=== PATIENT | male | born 1955 | race Caucasian/White ===

== ENCOUNTER → 2020-03-04 12:17 | Outpatient (CLI) | payer MEDICARE, SELFPAY ==
--- NOTE | ~2020-03-04 | XR_ITS ---
EXAMINATION: XR chest 2V DATE: 03/04/2020 12:32 INDICATION: Cough. Asbestos exposure. TECHNIQUE: Frontal and lateral views of the chest were obtained. COMPARISON: None. FINDINGS: The chest demonstrates clear lungs without pneumonia, pleural effusion, or pneumothorax. Th e heart size is normal. IMPRESSION: 1. No acute cardiopulmonary disease. Reviewed, dictated and finalized at location A.
== END ==
PROVIDERS: PCP Family Medicine; Visit Provider Family Medicine
DX: R05 Cough (principal); Z77.090 Contact with and (suspected) exposure to asbestos
CPT/HCPCS: 71046

== ENCOUNTER → 2020-10-23 00:53 | Outpatient (CLI) | payer MEDICARE, SELFPAY ==
[2020-10-23 19:13] LABS: SARS-CoV-2 RNA PCR Negative
== END ==
PROVIDERS: PCP Family Medicine; Visit Provider Internal Medicine Gastroenterology
DX: Z01.812 Encounter for preprocedural laboratory examination (principal); Z20.822 Contact with and (suspected) exposure to COVID-19
CPT/HCPCS: C9803; U0003; U0005

== ENCOUNTER 2020-10-26 00:26 | Day surgery (SDC) | payer MEDICARE, SELFPAY ==
[2020-10-20 10:00] VITALS: BMI 32.3
[2020-10-26 10:18] VITALS: BP 154/86; PULSE 66; RESP 18; TEMP 36.5; O2SAT 98; BMI 32.1
[2020-10-26] MEDS: LACTATED RINGERS 1,000 ML 150 ML IV CONT (10:28)
--- NOTE | 2020-10-26 10:39 | WPDANESEPPF ---
Anes - Initial Pre Proc Eval Procedure: Operation Date: 10/26/20 11:30 Proposed Procedures p Screening Colonoscopy - Yann Torre MD Date/Time: 10/26/20 10:39 Surgeon: Yann Torre MD Pre Op Diagnosis: Hx of Colon polyps Patient Data Age: 65 Gender: M Height: 5 ft 6 in Weight: 90.4 kg Last Vital Signs Pulse 66 10/26/20 10:18 Resp 18 10/26/20 10:18 BP 154/86 H 10/26/20 10:18 Pulse Ox 98 10/26/20 10:18 Allergies Allergy/AdvReac Type Severity Reaction Status Date / Time No Known Allergies Allergy Verified 10/26/20 10:16 Home Medications Medication Instructions Recorded Confirmed Type aspirin 81 mg tablet,delayed 81 mg PO DAILY 08/28/19 10/26/20 History release sildenafil 100 mg tablet 100 mg PO DAILY PRN 08/28/19 10/26/20 History Quercetin Phytosome 1 tab-cap PO DAILY 10/20/20 10/26/20 History Zicam 1 spray EACH NARE HS 10/20/20 10/26/20 History ascorbic acid (vitamin C) 1 cap PO DAILY 10/20/20 10/26/20 History cetirizine [Wal-Zyr (cetirizine)] 10 mg PO DAILY 10/20/20 10/26/20 History cholecalciferol (vitamin D3) 125 mcg PO DAILY 10/20/20 10/26/20 History [Vitamin D3] epinephrine [EpiPen 2-Albin] 0.3 mg IM ONCE PRN 10/20/20 10/26/20 History glucos sul 8LTh-hem-ciiab-C-Mn 1 cap PO DAILY 10/20/20 10/26/20 History [Glucosamine Chondroitin] hydrochlorothiazide 12.5 mg PO DAILY 10/20/20 10/26/20 History losartan 100 mg PO DAILY 10/20/20 10/26/20 History magnesium oxide 400 mg PO DAILY 10/20/20 10/26/20 History omega-3 fatty acids [[place]-3] 1,000 mg PO DAILY 10/20/20 10/26/20 History potassium 99 mg PO DAILY 10/20/20 10/26/20 History vit C,K-Yh-taxgu-lutein-zeaxan 1 tablet PO BID 10/20/20 10/26/20 History [PreserVision AREDS-2] Patient hx anesthesia problems: none Family hx anesthesia problems: none PMFSH Past Medical History Medical History (Updated 10/26/20 @ 10:39 by Chad Silverio MD) Anxiety Essential (primary) hypertension History of asbestos exposure Social History Social History (Updated 08/25/20 @ 09:58 by Julienne Nelson) Smoking status: Never smoker Second hand tobacco smoke exposure: No Alcohol intake: current Drinks per week: 10 Alcohol use details: DRINKS Substance use: current Substance use type: marijuana Other substance usage details: 5 TIMES A WEEK Living arrangements: with family Gender identity (if verbalized by the patient): Male Spiritual care concerns: No Anes - Eval Final PreProcedure Day of Procedure 10/26/20 10:39 Patient weight: obese Heart: regular rate and rhythm Lungs: clear to auscultation Airway: Mallampati scale class II Neurological: alert and oriented Last oral intake: >/= 8 hours ASA classification: III Emergent: no Anesthetic plan: proceed Anesthesia type and monitoring: general GIVS and standard monitoring Informed Consent: The patient's anesthetic plan and its attendant risks and benefits were discussed with the patient/family/POA. Questions were solicited and answers provided to the satisfaction of the patient/family/POA.
--- NOTE | 2020-10-26 11:16 | PM.HPGS ---
History of Present Illness History of Present Illness Consent: Risks, benefits, and alternatives have been discussed and questions answered. Patient agrees to proceed with procedure. Chief complaint: Hx of Colon polyps Narrative: Kyle Hilario is a 65 year old male referred for colon cancer screening. He has a history of colon polyps Review of Systems Review of Systems: All systems reviewed & are unremarkable except as noted in HPI and below PMFSH Past Medical History Medical History Anxiety Essential (primary) hypertension History of asbestos exposure Social History Social History Smoking status: Never smoker Second hand tobacco smoke exposure: No Alcohol intake: current Drinks per week: 10 Alcohol use details: DRINKS Substance use: current Substance use type: marijuana Other substance usage details: 5 TIMES A WEEK Living arrangements: with family Gender identity (if verbalized by the patient): Male Spiritual care concerns: No Meds Home Medications and Allergies Home Medications Medication Instructions Recorded Confirmed Type aspirin 81 mg tablet,delayed 81 mg PO DAILY 08/28/19 10/26/20 History release sildenafil 100 mg tablet 100 mg PO DAILY PRN 08/28/19 10/26/20 History Quercetin Phytosome 1 tab-cap PO DAILY 10/20/20 10/26/20 History Zicam 1 spray EACH NARE HS 10/20/20 10/26/20 History ascorbic acid (vitamin C) 1 cap PO DAILY 10/20/20 10/26/20 History cetirizine [Wal-Zyr (cetirizine)] 10 mg PO DAILY 10/20/20 10/26/20 History cholecalciferol (vitamin D3) 125 mcg PO DAILY 10/20/20 10/26/20 History [Vitamin D3] epinephrine [EpiPen 2-Albin] 0.3 mg IM ONCE PRN 10/20/20 10/26/20 History glucos sul 7XDx-ybi-kzdto-C-Mn 1 cap PO DAILY 10/20/20 10/26/20 History [Glucosamine Chondroitin] hydrochlorothiazide 12.5 mg PO DAILY 10/20/20 10/26/20 History losartan 100 mg PO DAILY 10/20/20 10/26/20 History magnesium oxide 400 mg PO DAILY 10/20/20 10/26/20 History omega-3 fatty acids [[place]-3] 1,000 mg PO DAILY 10/20/20 10/26/20 History potassium 99 mg PO DAILY 10/20/20 10/26/20 History vit C,H-My-jcyma-lutein-zeaxan 1 tablet PO BID 10/20/20 10/26/20 History [PreserVision AREDS-2] Allergies Allergy/AdvReac Type Severity Reaction Status Date / Time No Known Allergies Allergy Verified 10/26/20 10:16 Vital Signs Vital Signs - 24 hr 10/26/20 10:18 Pulse Rate 66 Respiratory Rate 18 Blood Pressure 154/86 H Pulse Oximetry 98 Exam Resp: Auscultation: clear to auscultation bilaterally Cardio: Rate: regular rate Rhythm: regular rhythm GI: GI Palp: Yes Soft to palpation and No Tenderness to palpation present (GI) Assessment and Plan Assessment and plan (1) Colon cancer screening: Code(s): Z12.11 - Encounter for screening for malignant neoplasm of colon Status: Acute Assessment and Plan: Colonoscopy with possible biopsy or polypectomy or cautery or injection of substances.
[2020-10-26] MEDS: SIMETHICONE ORAL SUSPENSION 20 MG/0.3 ML 30 ML BOTTLE 0.6 ML IRRIGATION (11:36)
[2020-10-26 11:43] VITALS: BP 107/63; PULSE 66; RESP 19; O2SAT 98
[2020-10-26 11:53] VITALS: BP 116/74; PULSE 67; RESP 18; O2SAT 98
[2020-10-26 12:03] VITALS: BP 118/67; PULSE 64; RESP 18; O2SAT 98
== END 2020-10-26 12:26 | disposition home or self-care (01) ==
PROVIDERS: PCP Family Medicine; Visit Provider Internal Medicine Gastroenterology
PROC: 0DJD8ZZ Inspection of Lower Intestinal Tract, Via Natural or Artificial Opening Endoscopic (ICD-10-PCS; CPT 45378; principal; 2020-10-26 11:30)
DX: Z12.11 Encounter for screening for malignant neoplasm of colon (principal); K57.30 Diverticulosis of large intestine without perforation or abscess without bleeding; Z86.010 Personal history of colon polyps; I10 Essential (primary) hypertension; F41.9 Anxiety disorder, unspecified; F12.90 Cannabis use, unspecified, uncomplicated; E66.9 Obesity, unspecified; Z68.32 Body mass index [BMI] 32.0-32.9, adult; Z79.82 Long term (current) use of aspirin
CPT/HCPCS: G0105; C9803; J2704; J7120; U0003; U0005

== ENCOUNTER → 2021-03-01 11:28 | Outpatient (CLI) | payer MEDICARE, SELFPAY ==
--- NOTE | ~2021-03-01 | XR_ITS ---
EXAMINATION: XR chest 2V 03/01/2021 11:50 INDICATION: Exposure to asbestos PROCEDURE: 2 view chest COMPARISON: 03/04/2020 FINDINGS: The lungs are clear. The cardiomediastinal silhouette is within normal limits. There are no pleural effusions. There is no pneumothorax suspected. IMPRESSION: 1: NO ACUTE CARDIOPULMONARY DISEASE. Reviewed, dictated and finalized at location A.
== END ==
PROVIDERS: PCP Family Medicine; Visit Provider Physician Assistant
DX: Z77.090 Contact with and (suspected) exposure to asbestos (principal)
CPT/HCPCS: 71046

== ENCOUNTER → 2022-02-22 11:16 | Outpatient (CLI) | payer MEDICARE, SELFPAY ==
--- NOTE | ~2022-02-22 | XR_ITS ---
EXAMINATION: XR chest 2V 02/22/2022 11:33 INDICATION: Asbestos exposure PROCEDURE: 2 view chest COMPARISON: 03/01/2021 FINDINGS: The lungs are clear. The cardiomediastinal silhouette is within normal limits. There are no pleural effusions. There is no pneumothorax suspected. IMPRESSION: 1: NO ACUTE CARDIOPULMONARY DISEASE. Reviewed, dictated and finalized at location A.
== END ==
PROVIDERS: PCP Family Medicine; Visit Provider Family Medicine
DX: Z77.090 Contact with and (suspected) exposure to asbestos (principal)
CPT/HCPCS: 71046

== ENCOUNTER 2022-11-11 12:04 | Emergency (ER) | payer MEDICARE, SELFPAY ==
--- NOTE | 2022-11-11 12:09 | PC.NURSE ---
Pt declined to be eval by a PCP due to BP reading in triage of 157/75. Pt ambulated out in NAD w/ , steady gait.
== END 2022-11-11 12:10 | disposition left against medical advice (07) ==
PROVIDERS: PCP Family Medicine
DX: Z53.21 Procedure and treatment not carried out due to patient leaving prior to being seen by health care provider (principal)
CPT/HCPCS: 99199

== ENCOUNTER → 2023-02-28 11:14 | Outpatient (CLI) | payer MEDICARE, SELFPAY ==
--- NOTE | ~2023-02-28 | XR_ITS ---
AP and lateral views of the left hip Clinical history: Pain Findings: No acute fracture or dislocation is seen. Osseous alignment is anatomic. Bilateral hip and SI joint spaces are preserved. Soft tissues are unremarkable. Impression: No significant abnormality is seen. Reviewed, dictated and finalized at location . Impression: No significant abnormality is seen.
--- NOTE | ~2023-02-28 | XR_ITS ---
Clinical Indication: Asbestos exposure PA and lateral views of the chest: Comparison: 02/22/2022 Findings: The lungs are clear, without evidence of focal consolidation or pleural effusion. Cardiome diastinal silhouette is within normal limits. Bones and soft tissues are unremarkable. Impression: Normal chest. Reviewed, dictated and finalized at [facility]. Impression: Normal chest.
== END ==
PROVIDERS: PCP Family Medicine; Visit Provider Family Medicine
DX: Z77.090 Contact with and (suspected) exposure to asbestos (principal); R05.9 Cough, unspecified; M25.552 Pain in left hip
CPT/HCPCS: 71046; 73502

== ENCOUNTER 2024-03-11 10:43 | Outpatient (CLI) | payer MEDICARE, SELFPAY ==
--- NOTE | ~2024-03-11 | XR_ITS ---
XR chest 2V 03/11/2024 10:52 Indication: Exposure to suggest metastasis Procedure: 2 view chest Comparison: Comparison to multiple prior studies sequentially, with oldest reviewed study dated 03/04. Findings: Heart size is normal. No focal air space disease, pulmonary edema, pleural effusion or susp ected pneumothorax. No acute osseous abnormality. No pleural calcifications are identified. No signif icant interstitial lung disease. Impression: 1: No acute cardiopulmonary disease. Reviewed, dictated and finalized at location B. Impression: 1: No acute cardiopulmonary disease.
== END 2024-03-11 10:44 ==
PROVIDERS: PCP Physician Assistant; Visit Provider Physician Assistant
DX: Z77.090 Contact with and (suspected) exposure to asbestos (principal)
CPT/HCPCS: 71046

== ENCOUNTER 2024-08-18 10:51 | Outpatient (CLI) | payer MEDICARE, SELFPAY ==
--- NOTE | ~2024-08-18 | MR_ITS ---
EXAMINATION: MR abdomen wo/w con DATE: 08/18/2024 11:44 INDICATION: Left kidney mass. Bilateral adrenal masses. TECHNIQUE: Magnetic resonance imaging (MRI) of the abdomen was performed without and with 18 mL Multi Constantine intravenous contrast. COMPARISON: Lumbar spine MRI 01/20/2016 FINDINGS: There is diffuse hepatic steatosis. There are cysts in the liver measuring up to 16 mm . The gallblad bryn, spleen, pancreas, and normal. There is a 3.1 cm mass in right adrenal gland containing microscop ic fat, consistent with an adenoma. There is a 2.5 cm mass in left adrenal gland containing microscop ic fat, consistent with an adenoma. There are cysts in the kidneys measuring up to 8 mm on the right. There is a 15 mm hemorrhagic cyst in right kidney. There is a 2.9 cm cystic mass in left kidney with septum focally thickened to 3 mm with enhancement. There are no dilated loops of bowel. There are no pathologically enlarged lymph nodes. There is no free intraperitoneal fluid. IMPRESSION: 1. 2.9 cm Bosniak type III cystic lesion of left kidney. 2. Bilateral adrenal adenomas. Reviewed, dictated and finalized at location A. RACT MAKER
== END 2024-08-18 10:52 | disposition home or self-care (01) ==
LOC: MICIMG 10:51
PROVIDERS: PCP Family Medicine; Visit Provider Physician Assistant
DX: E27.9 Disorder of adrenal gland, unspecified (principal); N28.1 Cyst of kidney, acquired; D35.02 Benign neoplasm of left adrenal gland; D35.01 Benign neoplasm of right adrenal gland
CPT/HCPCS: 74183; A9577

== ENCOUNTER 2024-08-25 11:23 | Outpatient (CLI) | payer MEDICARE, SELFPAY ==
--- NOTE | 2024-08-25 11:28 | ECG_ITS ---
Test Date: 2024-08-25 11:48:52 Measurements Intervals [place] Rate: 71 P: 79 PA: 165 QRS: -56 QRSD: 90 T: 14 QT: 381 QTc: 415 Interpretive Statements SINUS RHYTHM WITH SINUS ARRHYTHMIA OLD INFERIOR [place] No previous ECG available for comparison Electronically Signed On 08-25-2024 18:02:35 G[employer]ING [employer]OX PERSON by Janel Willson M.D.
[2024-08-25 12:01] LABS: Basophils Absolute Auto 0.1 K/mm3 (0.0-0.1); Basophils Percent Auto 0.7 % (0.2-1.2); Eosinophils Absolute Auto 0.2 K/mm3 (0-0.3); Eosinophils Percent Auto 2.2 % (0-4.4); Hematocrit 45.4 % (42.0-52.0); Hemoglobin 14.9 g/dL (14.0-18.0); Immature Granulocyte Absolute 0.03 K/mm3 (0.00-0.031); Immature Granulocyte Percent A 0.3 % (0-0.5); Lymphocytes Absolute Auto 2.32 K/mm3 (0.9-3.2); Lymphocytes Percent Auto 25.3 % (18.3-44.2); Mean Corpuscular HGB Conc 32.8 g/dl (32-36); Mean Corpuscular Hemoglobin 30.7 pg (26-34); Mean Corpuscular Volume 93.6 fl (80-100); Monocytes Percent Auto 10.9 % (2.6-8.5); Neutrophils Absolute Auto 5.6 K/mm3 (1.3-6.7); Neutrophils Percent Auto 60.6 % (45.5-73.1); Platelet Count Result 242 k/mm3 (150-375); Red Blood Count 4.85 M/mm3 (4.6-6.20); Red Cell Distribution Width 13.2 % (11.5-14.5); White Blood Count 9.2 K/mm3 (4.5-10.0)
[2024-08-25 12:20] LABS: Anion Gap 10 mmol/L (4-12); Blood Urea Nitrogen 12 mg/dL (9-20); Calcium 8.7 mg/dL (8.4-10.2); Carbon Dioxide 29 mmol/L (22-30); Chloride 100 mmol/L (98-107); Estimated Glomerular Filt Rate > 60; Glucose 96 mg/dL (65-110); Sodium 139 mmol/L (137-145)
--- OUTSIDE RECORDS SUMMARY | 2024-08-28 13:01 | XMS_ITS | Referral Summary ---
Author Organization [facility] Address [address] [place] [address] Care Team Providers Care Earthmoving Labourer Name Role Phone Bennett Shaikh MD Primary Care Provider Encounters Date Type Department Care Team Description 08/14/2024 10:15 AM SENIOR MANUFACTURING SUPERVISOR Office Visit [facility] Cardiology [address] [place] [address] Britt Obando MD Paroxysmal atrial fibrillation (CMS/HCC) (HCC) (Primary Dx); Primary hypertension; Mixed hyperlipidemia 07/21/2024 7:44 AM SENIOR MANUFACTURING SUPERVISOR - 07/21/2024 11:54 AM [facility] Emergency [facility] Emergency Department [address] [place] [address] Dennis Jennings MD Gastrointestinal hemorrhage, unspecified gastrointestinal hemorrhage type (Primary Dx); Acute buttock pain; Varicose veins of anus or rectum; Cellulitis of right buttock Discharge Disposition: Discharge to home or self care from Last 3 Months Allergies No known active allergies Medications fluticasone propionate (FLONASE) 50 mcg/actuation nasal spray Administer 1 spray into each nostril daily Active potassium gluconate 595 mg (99 mg) tablet 1 tablet (595 mg total) Active cetirizine (ZyrTEC) 10 mg chewable tablet Take 1 tablet (10 mg total) by mouth daily Active ascorbic acid (VITAMIN C) 1,000 mg tablet Take 1 tablet (1,000 mg total) by mouth daily Active magnesium oxide 400 mg magnesium capsule Take by mouth Active vitamin B complex capsule Take 1 capsule by mouth daily Active calcium citrate-vitami n D3 (CITRACAL WITH D) 315 mg-6.25 mcg (250 unit) per tablet Take 1 tablet by mouth daily Active glucosamine HCl/chondroiti n rosas (glucosamine-c hondroitin) 2,000-1,200 mg/30 mL liquid Take by mouth Active losartan (COZAAR) 100 mg tablet Take 1 tablet (100 mg total) by mouth daily Active hydroCHLOROthi azide (HYDRODIURIL) 12.5 mg tablet Take 1 tablet (12.5 mg total) by mouth daily Active metoprolol XL (TOPROL-XL) 25 mg extended release tablet TAKE 1 TABLET(25 MG) BY MOUTH DAILY 90 tablet 4 Active apixaban (Eliquis) 5 mg tablet TAKE 1 TABLET(5 MG) BY MOUTH TWICE DAILY 180 tablet 4 Active lidocaine (LMX) 4 % cream Apply topically as needed for pain 30 g 4 Active Additional Information Patient not taking.Reported on 08/14/2024 polyethylene glycol (MIRALAX) 17 gram/dose bulk powder Take 17 g by mouth daily 510 g 4 Active Additional Information Patient not taking.Reported on 08/14/2024 cholecalcifero l (VITAMIN D-3) 2000 unit capsule 1 capsule (2,000 Units total) 025 Discontinu ed(Alterna te therapy) cephalexin (KEFLEX) 500 mg capsule Take 1 capsule (500 mg total) by mouth 4 (four) times a day for 10 days 40 capsule 4 024 Active Problems Problem Noted Date Diagnosed Date Hyperlipidemia 08/10/2023 Cardiac arrhythmia 05/07/2023 Paroxysmal atrial fibrillation (CMS/HCC) 022 Assessment & Plan (02/14/2023 9:30 AM CDT): Now with probable early recurrence after PVI. Counseled pt regarding options. Offered expectant management, AAD therapy, repeat PVI. Pt would like some time to assess. Will monitor to confirm dx. --14 day Bardy monitor --Continue apixaban 5 mg BID --Continue metoprolol XL 25 mg daily --Pt may call to schedule AF ablation --F/u 3 months Assessment & Plan (09/05/2022 10:27 AM SENIOR MANUFACTURING SUPERVISOR): Paroxysmal AF and atrial flutter with very high arrhythmia burden (24%) by ambulatory monitoring. Associated with mild symptoms. Rates elevated during events. Discussed arrhythmia management at length with patient. We reviewed rate control, AAD therapy and catheter ablation. Pt strongly prefers ablation. I reviewed the catheter ablation procedure in detail, including procedural steps, risks/benefits, expected outcomes, recovery. He understands and wishes to proceed. [id number] = 2 (age, hypertension). --Atrial fibrillation ablation w/anesthesia --Continue apixaban 5 mg BID. Hold starting the evening prior to procedure --Continue metoprolol XL 25 mg daily --F/u on echocardiogram results ( previously ordered) Paroxysmal atrial flutter ([facility]) 07/21/2022 Hypertension 06/09/2022 Resolved Problems Problem Noted Date Diagnosed Date Resolved Date Palpitations 06/09/2022 08/10/2023 Social History Tobacco Use Types Packs/Day Years Used Date Smoking Tobacco: Never Smokeless Tobacco: Never Tobacco Cessation:Counseling Given: Not Answered AUDIT-C Answer Date Recorded Q1: How often do you have a drink containing alcohol? 4 or more times a week 05/31/2023 Q2: How many drinks containi ng alcohol do you have on a typical day when you are drinking? 1 or 2 Q3: How often do you have si x or more drinks on one occasion? Less than monthly 05/31/2023 Personal Safety Answer Date Recorded Have you ever been in or are you currently in a harmful physical or emotional relationship or is someone making you feel afraid or unsafe? Denies 07/21/2024 Sex and Gender Information Value Date Recorded Sex Assigned at Not on file Legal Sex Male 1:49 AM SENIOR MANUFACTURING SUPERVISOR Gender Identity Male 09/01/2022 10:15 AM SENIOR MANUFACTURING SUPERVISOR Sexual Orientation Not on file Last Filed Vital Signs Vital Sign Reading Time Taken Comments Blood Pressure 138/70 08/14/2024 10:14 AM SENIOR MANUFACTURING SUPERVISOR Pulse 73 08/14/2024 10:14 AM SENIOR MANUFACTURING SUPERVISOR Temperature 37.1 ??C (98.8 ??F) 07/21/2024 7:20 AM CS T Respiratory Rate 15 07/21/2024 10:3 0 AM SENIOR MANUFACTURING SUPERVISOR Oxygen Saturation 96% 08/14/2024 10: 14 AM SENIOR MANUFACTURING SUPERVISOR Inhaled Oxygen Concentration - - Weight 93.8 kg (206 lb 12.8 oz) 025 10:14 AM SENIOR MANUFACTURING SUPERVISOR Height 167.6 cm (5' 6 ) 08/14/2024 10:1 4 AM SENIOR MANUFACTURING SUPERVISOR Body Mass Index 33.38 08/14/2024 10:14 AM SENIOR MANUFACTURING SUPERVISOR Plan of Treatment Not on file Medical Devices Implanted Type Area Head Miller Device Identifier Shelf Expiration Date Model / Serial / Lot [employer] Vascade Mvp 6-12fr Venous Closure [id number] - [id number] - [id number] Implanted:Qty: 1 on 10/05/2022 by Loki Shaikh III, MD at [facility] [employer] 07/12/2024 800-612C-1 0U / [id number] / [id number] [employer] Vascade Mvp 6-12fr Venous Closure [id number] - [id number] - [id number] Implanted:Qty: 1 on 10/05/2022 by Loki Shaikh III, MD at [facility] [employer] 07/12/2024 800-612C-1 0U / [id number] / [id number] [employer] Vascade Mvp 6-12fr Venous Closure [id number] - [id number] - [id number] Implanted:Qty: 1 on 10/05/2022 by Loki Shaikh III, MD at [facility] [employer] 07/12/2024 800-612C-1 0U / [id number] / [id number] [employer] Vascade Mvp 6-12fr Venous Closure [id number] - [id number] - [id number] Implanted:Qty: 1 on 05/31/2023 by Loki Shaikh III, MD at [facility] [employer] 02/21/2025 800-612C-1 0U / [id number] / [id number] [employer] Vascade Mvp 6-12fr Venous Closure [id number] - [id number] - [id number] Implanted:Qty: 1 on 05/31/2023 by Loki Shaikh III, MD at [facility] [employer] 02/21/2025 800-612C-1 0U / [id number] / [id number] [employer] Vascade Mvp 6-12fr Venous Closure [id number] - [id number] - [id number] Implanted:Qty: 1 on 05/31/2023 by Loki Shaikh III, MD at [facility] [employer] 02/21/2025 800-612C-1 0U / [id number] / [id number] Procedures Procedure Name Priority Date/Time Associated Diagnosis Comments POCT LIPID PANEL Routine 08/14/2024 1:43 PM SENIOR MANUFACTURING SUPERVISOR Mixed hyperlipidemia TYPE AND SCREEN STAT 07/21/2024 10:22 AM SENIOR MANUFACTURING SUPERVISOR APTT STAT 07/21/2024 10:22 AM SENIOR MANUFACTURING SUPERVISOR PROTIME-INR STAT 07/21/2024 10:22 AM SENIOR MANUFACTURING SUPERVISOR CT ABDOMEN PELVIS W CONTRAST ED 07/21/2024 9:50 AM SENIOR MANUFACTURING SUPERVISOR URINALYSIS AND REFLEX TO MICROSCOPIC STAT 07/21/2024 9:09 AM SENIOR MANUFACTURING SUPERVISOR POCT CREATININE - DEVICE Routine 07/21/2024 8:38 AM SENIOR MANUFACTURING SUPERVISOR EGFR STAT 07/21/2024 8:31 AM SENIOR MANUFACTURING SUPERVISOR DIFFERENTIAL AUTO STAT 07/21/2024 8:3 1 AM SENIOR MANUFACTURING SUPERVISOR COMPREHENSIVE METABOLIC PANEL STAT 07/21/2024 8:31 AM SENIOR MANUFACTURING SUPERVISOR CBC WITH AUTO DIFFERENTIAL STAT 07/21/2024 8:31 AM SENIOR MANUFACTURING SUPERVISOR from Last 3 Months Results * POCT lipid panel (08/14/2024 1:43 PM SENIOR MANUFACTURING SUPERVISOR) Cholesterol, POC 163 mg/dL Comment:GLU = 119 HDL, POC 38 mg/dL Triglycerides, POC 77 mg/dL LDL Cholesterol POC 110 mg/dL Chol/HDL Ratio, POC 2.9 Non-HDL Cholesterol, POC 125 mg/dL Cholesterol Total, POC 163 mg/dL Capillary blood 08/14/2024 1 :43 PM SENIOR MANUFACTURING SUPERVISOR us Britt Obando MD POINT OF CARE TEST SHANTA RAMIREZ Final Result * aPTT (07/21/2024 10:22 AM SENIOR MANUFACTURING SUPERVISOR) aPTT 38 28 - 38 sec Comment: Interpretive Data Heparin therapeutic range: 66.0 - 100.0 seconds. Range based on correlation with therapeutic heparin activity range of 0.3 - 0.7 Units/mL. Current interpretive data was last revised on 2023. Blood 07/21/2024 10:2 2 AM SENIOR MANUFACTURING SUPERVISOR 07/21/2024 10:29 AM SENIOR MANUFACTURING SUPERVISOR us Mell Easton MD LAB BLOOD ORDERABLES F inal Result Performing Organization Address City/State/[facility] Co de Phone Number [facility] Department [place] [address] * (ABNORMAL) Protime-INR (07/21/2024 10:22 AM SENIOR MANUFACTURING SUPERVISOR) PT 17.6(H) 9.7 - 13.0 sec INR 1.61(H) 0.90 - 1.20 [facility] Comment: Interpretive data Oral anticoagulant therapeutic ranges: Venous thromboembolism prophylaxis or treatment: 2.0-3.0 CARDIOLOGY Standard range: 2.0-3.0 High-intensity range: 2.5-3.5 Refer to indication-specific guidelines for appropriate target ranges for prosthetic heart valve replacement. Current interpretive data was last revised on 2019. Blood 07/21/2024 10:2 2 AM SENIOR MANUFACTURING SUPERVISOR 07/21/2024 10:29 AM SENIOR MANUFACTURING SUPERVISOR Mell Easton MD LAB BLOOD ORDERABLES F inal Result Performing Organization Address City/[facility]/ZIP Co de Phone Number [facility] Department [place] [address] * Type and screen (07/21/2024 10:22 AM SENIOR MANUFACTURING SUPERVISOR) Andrez, indirect Negative ABO Rh O Negative [facility] Blood 07/21/2024 10:2 2 AM SENIOR MANUFACTURING SUPERVISOR 07/21/2024 10:35 AM SENIOR MANUFACTURING SUPERVISOR Narrative [facility] - 07/21/2024 11:29 AM SENIOR MANUFACTURING SUPERVISOR Has the patient had Daratumumab or Isatuximab in the past 6 months?->Unknown Mell Easton MD LAB BLOOD BANK TEST OR DERABLES Final Result Performing Organization Address [facility] Co de Phone Number [facility] Department [place] [address] * CT Abdomen Pelvis W Contrast (07/21/2024 9:50 AM SENIOR MANUFACTURING SUPERVISOR) Anatomical Region Laterality Modality Body N/A Computed Tomogra phy 07/21/2024 10:0 7 AM SENIOR MANUFACTURING SUPERVISOR Impressions 07/21/2024 10:07 AM SENIOR MANUFACTURING SUPERVISOR 1. ??CT findings demonstrating rectal inflammation. ??No discrete mass is identified. ??Direct visualization would be recommended to rule out rectal mass. 2. ??Complex left renal lesion with solid component is suspicious for neoplasm. ??MR would be recommended for further evaluation. 3. ??Bilateral indeterminate adrenal nodules. ??These could be also evaluated with MRI. Electronically signed by: Kyle Patel M.D. Narrative 07/21/2024 10:07 AM SENIOR MANUFACTURING SUPERVISOR EXAMINATION: CT ABDOMEN PELVIS W CONTRAST HISTORY: Bright red blood per rectum TECHNIQUE: ??Transaxial computed tomographic images of the abdomen pelvis ??were obtained with intravenous contrast according to the standard protocol after the uneventful administration of 70 mL Opti-Ray 350 intravenous contrast. COMPARISON: None available FINDINGS: ?? Lung bases clear. ??Heart size normal. ??No pericardial effusion. Mild hepatic steatosis. ??No focal liver lesions. ??No intrahepatic or extrahepatic bile duct dilatation. ??The gallbladder, spleen are normal. ??Pancreas is normal. ??Bilateral indeterminate adrenal nodules measuring up to 2.6 cm. ??Renal cysts seen within both kidneys. ??There is a complex cystic lesion with enhancing mural nodule in the upper pole of the left kidney measuring 2.1 cm (image 59). Small bowel and colon are normal in caliber. ??No obstruction.. Diverticulosis but no evidence of diverticulitis. ??No intraperitoneal free air or fluid. ??There is mild rectal wall thickening with mesorectal edema with prominent lymph nodes. ??No discrete mass is identified. ??There is no inguinal pelvic mesenteric or retroperitoneal adenopathy. ??Appendix is normal. Bladder is normal. ??Prostate is present. Bone windows demonstrate fusion of L4-L5. ??No suspicious lytic or blastic lesions. Procedure Note Kyle Patel MD PhD - 07/21/2024 EXAMINATION: CT ABDOMEN PELVIS W CONTRAST HISTORY: Bright red blood per rectum TECHNIQUE: Transaxial computed tomographic images of the abdomen pelvis were obtained with intravenous contrast according to the standard protocol after the uneventful administration of 70 mL Opti-Ray 350 intravenous contrast. COMPARISON: None available FINDINGS: Lung bases clear. Heart size normal. No pericardial effusion. Mild hepatic steatosis. No focal liver lesions. No intrahepatic or extrahepatic bile duct dilatation. The gallbladder, spleen are normal. Pancreas is normal. Bilateral indeterminate adrenal nodules measuring up to 2.6 cm. Renal cysts seen within both kidneys. There is a complex cystic lesion with enhancing mural nodule in the upper pole of the left kidney measuring 2.1 cm (image 59). Small bowel and colon are normal in caliber. No obstruction.. Diverticulosis but no evidence of diverticulitis. No intraperitoneal free air or fluid. There is mild rectal wall thickening with mesorectal edema with prominent lymph nodes. No discrete mass is identified. There is no inguinal pelvic mesenteric or retroperitoneal adenopathy. Appendix is normal. Bladder is normal. Prostate is present. Bone windows demonstrate fusion of L4-L5. No suspicious lytic or blastic lesions. IMPRESSION: 1. CT findings demonstrating rectal inflammation. No discrete mass is identified. Direct visualization would be recommended to rule out rectal mass. 2. Complex left renal lesion with solid component is suspicious for neoplasm. MR would be recommended for further evaluation. 3. Bilateral indeterminate adrenal nodules. These could be also evaluated with MRI. Electronically signed by: Kyle Patel M.D. Mell Easton MD IMG CT PROCEDURES Karli l Result * Urinalysis reflex to microscopic (07/21/2024 9:09 AM SENIOR MANUFACTURING SUPERVISOR) Color, ur Yellow Yellow Clarity, ur Clear Clear [facility] Specific gravity, ur 1.017 1.003 - 1.030 [facility] pH, urine 7.0 [facility] Comment: Interpretive Data ? Urine pH is affected by diet, medications, systemic acid-base disturbances, and renal tubular function. ??pH may affect urinary stone formation. ??For example, urine pH below 6.0 may help reduce the tendency for calcium phosphate stones and pH greater than 6.0 may reduce the tendency for uric acid stone formation. Source: [facility] Jeeran Current Interpretive Data was last revised on 2017 Protein, ur ql Trace Negative [facility] Glucose, ur ql Negative Negative [facility] Ketones, ur Negative Negative [facility] Bilirubin, ur Negative Negative [facility] Blood, ur Negative Negative [facility] Urobilinogen, ur <2.0 <2.0 mg/dL [facility] Nitrite, ur Negative Negative [facility] Leukocyte esterase, ur Negative Negative [facility] UA reflex comment Reflex conditions for microscopic UA not met. [facility] Urine 07/21/2024 9:09 AM SENIOR MANUFACTURING SUPERVISOR 07/21/2024 9:25 AM SENIOR MANUFACTURING SUPERVISOR Mell Easton MD LAB URINE ORDERABLES F inal Result [facility] Department [place] [address] * POCT creatinine (07/21/2024 8:38 AM SENIOR MANUFACTURING SUPERVISOR) Pathologist [facility] Creatinine POC 0.8 0.7 - 1.3 mg/dL Blood 07/21/2024 8:38 AM SENIOR MANUFACTURING SUPERVISOR 07/21/2024 8:38 AM SENIOR MANUFACTURING SUPERVISOR us Dennis Jennings MD LAB POCT ORDERABLES - MYAH CE Final Result [facility] HERNANDEZ [facility] [place] [address] * eGFR (07/21/2024 8:31 AM SENIOR MANUFACTURING SUPERVISOR) Pathologist [facility] eGFR >90 >=60 mL/min/1. 73 m2 Comment: Interpretive Data Reference Interval Normal ?>/= 90 mL/min/1.73m2 Mildly decreased* ? 60 - 89 mL/min/1.73m2 Mildly to moderately decreased ?45 - 59 mL/min/1.73m2 Moderately to severely decreased ??30 - 44 mL/min/1.73m2 Severely decreased ?15 - 29 mL/min/1.73m2 Kidney Failure ?< 15 ??mL/min/1.73m2 *Relative to young adult level Estimated glomerular filtration rate is determined by the 2020 CKD-EPI equation recommended by the National Kidney Foundation (A Unifying Approach to GFR Estimation: Recommendations of the NKF-ASK Task Force on Reassessing the Inclusion of Race in Diagnosing Kidney Disease, JASN 2020). The CKD-EPI equation should not be used for patients with unstable renal function and has not been validated in children and those over 70. Current interpretive data was last reviewed 2021. Blood 07/21/2024 8:3 1 AM SENIOR MANUFACTURING SUPERVISOR 07/21/2024 8:41 AM SENIOR MANUFACTURING SUPERVISOR us Mell Easton MD LAB BLOOD ORDERABLES F inal Result [facility] Department [place] [address] * (ABNORMAL) Differential, auto (07/21/2024 8:31 AM SENIOR MANUFACTURING SUPERVISOR) Neutrophil abs 7.8(H) 1.5 - 6.5 K/cumm Imm gran abs 0.1 0.0 - 0.1 K/cumm [facility] Lymphocyte abs 1.9 0.8 - 3.3 K/cumm [facility] Monocyte abs 1.4(H) 0.2 - 0.8 K/cumm [facility] Eosinophil abs 0.2 0.0 - 0.5 K/cumm [facility] Basophil abs 0.0 0.0 - 0.1 K/cumm [facility] Neutrophil pct 68.7 % [facility] Comment: Interpretive Data Percent cell count reference ranges are not reported, since discordance with absolute values may lead to misinterpretation of CBC data. Current Interpretive Data was last revised on 2017. Imm gran pct 0.5 % [facility] Comment: Interpretive Data Percent cell count reference ranges are not reported, since discordance with absolute values may lead to misinterpretation of CBC data. Current Interpretive Data was last revised on 2017. Lymphocyte pct 16.4 % [facility] Comment: Interpretive Data Percent cell count reference ranges are not reported, since discordance with absolute values may lead to misinterpretation of CBC data. Current Interpretive Data was last revised on 2017. Monocyte pct 12.2 % [facility] Comment: Interpretive Data Percent cell count reference ranges are not reported, since discordance with absolute values may lead to misinterpretation of CBC data. Current Interpretive Data was last revised on 2017. Eosinophil pct 1.8 % [facility] Comment: Interpretive Data Percent cell count reference ranges are not reported, since discordance with absolute values may lead to misinterpretation of CBC data. Current Interpretive Data was last revised on 2017. Basophil pct 0.4 % [facility] Comment: Interpretive Data Percent cell count reference ranges are not reported, since discordance with absolute values may lead to misinterpretation of CBC data. Current Interpretive Data was last revised on 2017. Blood 07/21/2024 8:31 AM SENIOR MANUFACTURING SUPERVISOR 07/21/2024 8:41 AM SENIOR MANUFACTURING SUPERVISOR us Mell Easton MD LAB BLOOD ORDERABLES F inal Result [facility] Department [place] [address] * (ABNORMAL) CBC with auto differential (07/21/2024 8:31 AM SENIOR MANUFACTURING SUPERVISOR) WBC 11.3(H) 3.8 - 9.9 K/cumm Hgb 14.5 13.0 - 17.5 g/dL [facility] Hct 42.7 38.9 - 50.3 % [facility] Plt 272 150 - 400 K/cumm [facility] MPV 9.9 9.1 - 12.3 fL [facility] RBC 4.71 4.30 - 5.80 M/cumm [facility] MCV 90.7 81.3 - 96.4 fL [facility] MCH 30.8 27.1 - 33.3 pg [facility] MCHC 34.0 32.3 - 35.7 g/dL [facility] RDW CV 12.4 11.1 - 14.9 % [facility] RDW SD 41.8 35.7 - 48.1 fL [facility] NRBC abs 0.00 0.00 - 0.01 K/cumm [facility] Blood 07/21/2024 8:31 AM SENIOR MANUFACTURING SUPERVISOR 07/21/2024 8:41 AM SENIOR MANUFACTURING SUPERVISOR Mell Easton MD LAB BLOOD ORDERABLES F inal Result [facility] Department [place] [address] * Comprehensive metabolic panel (07/21/2024 8:31 AM SENIOR MANUFACTURING SUPERVISOR) Sodium 140 135 - 145 mmol/L Potassium, pl 4.0 3.3 - 4.9 mmol/L [facility] Chloride 101 97 - 110 mmol/L [facility] CO2 28 22 - 32 mmol/L [facility] Anion gap 11 2 - 15 mmol/L [facility] BUN 12 6 - 25 mg/dL [facility] Creatinine 0.80 0.80 - 1.30 mg/dL [facility] Glucose 119 70 - 199 mg/dL [facility] Comment: Interpretive Data Fasting glucose >/= 126 mg/dl is diagnostic for diabetes. ?? Fasting is defined as no caloric intake for at least 8 hours. Fasting glucose between 100 mg/dl to 125 mg/dl is diagnostic of prediabetes. In a patient with classic symptoms of hyperglycemia or hyperglycemic crisis, a random glucose >/= 200 mg/dl is diagnostic for diabetes. In the absence of unequivocal hyperglycemia, results should be confirmed by repeat testing. The classification and Diagnosis of Diabetes Diabetes Care 2021; 46: S19-S40. Current interpretive data was last revised 2022. Calcium 9.1 8.5 - 10.3 mg/dL [facility] Bilirubin, total 0.6 0.1 - 1.2 mg/dL [facility] Protein, pl 6.8 6.5 - 8.5 g/dL [facility] Albumin 3.8 3.5 - 5.0 g/dL [facility] Alk phos 103 40 - 130 Units/L [facility] ALT 20 7 - 55 Units/L [facility] AST 17 10 - 50 Units/L [facility] Blood 07/21/2024 8:31 AM SENIOR MANUFACTURING SUPERVISOR 07/21/2024 8:41 AM SENIOR MANUFACTURING SUPERVISOR us Mell Easton MD LAB BLOOD ORDERABLES F inal Result [facility] Department [place] [address] from Last 3 Months Insurance Care Teams Earthmoving Labourer Relationship Specialty Start Date End Date Bennett Shaikh MD [address] [facility] [address] [place] [address] PCP - General Family Medicine 06/09/22
--- OUTSIDE RECORDS SUMMARY | 2024-08-28 13:01 | XMS_ITS | CONTINUITY OF CARE DOCUMENT ---
Author Name jennifer rodriguez Address Unknown Organization [facility] Address [address] [place] [address] [address] [place] [address] Phone [phone] Care Team Providers Care Employee Welfare Manager Name Role Phone jennifer rodriguez Unavailable Unavailable INSURANCE PROVIDERS Payer name Policy type / Coverage type [place] red democrat ID US [employer] insurance company [id number]
--- OUTSIDE RECORDS SUMMARY | 2024-08-28 13:01 | XMS_ITS | Clinical Summary ---
Author Organization [facility] Address [address] [place] [address] Care Team Providers Care Nurse Educator Name Role Phone Bennett Shaikh MD Primary Care Provider Allergies No known active allergies Medications fluticasone [...] months Assessment & Plan (09/05/2022 10:27 AM MOLD SANDER): Paroxysmal AF and atrial flutter with very high arrhythmia burden (24%) by ambulatory monitoring. Associated with mild symptoms. Rates elevated during events. Discussed arrhythmia management at length with patient. We reviewed rate control, AAD therapy and catheter ablation. Pt strongly prefers ablation. I reviewed the catheter ablation procedure in detail, including procedural steps, risks/benefits, expected outcomes, recovery. He understands and wishes to proceed. [id number] = 2 (age, hypertension). --Atrial fibrillation ablation w/anesthesia --Continue apixaban 5 mg BID. Hold starting the evening prior to procedure --Continue metoprolol XL 25 mg daily --F/u on echocardiogram results ( previously ordered) Paroxysmal atrial flutter (CMS/HCC) 07/21/2022 Hypertension 06/09/2022 Resolved Problems Problem Noted Date Diagnosed Date Resolved Date Palpitations 06/09/2022 08/10/2023 Encounters Date Type Department Care Team Description 08/14/2024 10:15 AM MOLD SANDER Office Visit [facility] Card[facility] [address] [place] [address] Britt Obando MD Paroxysmal atrial fibrillation (CMS/HCC) (HCC) (Primary Dx); Primary hypertension; Mixed hyperlipidemia 07/21/2024 7:44 AM MOLD SANDER - 07/21/2024 11:54 AM MOLD SANDER Emergency [facility] Emergency Department [address] [place] [address] Dennis Jennings MD Gastrointestinal hemorrhage, unspecified gastrointestinal hemorrhage type (Primary Dx); Acute buttock pain; Varicose veins of anus or rectum; Cellulitis of right buttock Discharge Disposition: Discharge to home or self care from Last 3 Months Surgical History Surgery Date Site/Laterality Comments STOMACH SURGERY CARPAL TUNNEL RELEASE HERNIA REPAIR LASIK SPINE SURGERY ABDOMINAL SURGERY Medical History Medical History Date Comments Atrial fibrillation (CMS/HCC) (HCC) Hypertension Anxiety Anal fistula Family History Medical History Relation Name Comments Atrial fibrillation Mother Lidya Hilario Hypertension Mother Lidya Hilario Relation Name Status Comments Mother Lidya Hilario Social History Tobacco Use Types Packs/Day Years [...] on file Legal Sex Male 1:49 AM MOLD SANDER Gender Identity Male 09/01/2022 10:15 AM MOLD SANDER Sexual Orientation Not on file Obstetrics History Last Filed Vital Signs Vital Sign Reading Time Taken Comments Blood Pressure 138/70 08/14/2024 10:14 AM MOLD SANDER Pulse 73 08/14/2024 10:14 AM MOLD SANDER Temperature 37.1 ??C (98.8 ??F) 07/21/2024 7:20 AM CS T Respiratory Rate 15 07/21/2024 10:3 0 AM MOLD SANDER Oxygen Saturation 96% 08/14/2024 10: 14 AM MOLD SANDER Inhaled Oxygen Concentration - - Weight 93.8 kg (206 lb 12.8 oz) 025 10:14 AM MOLD SANDER Height 167.6 cm (5' 6 ) 08/14/2024 10:1 4 AM MOLD SANDER Body Mass Index 33.38 08/14/2024 10:14 AM MOLD SANDER Plan of Treatment Health Maintenance Due Date Last Done Comments Colon Cancer Screening-Colonoscopy 1955 Depression Screening 1955 Fall Risk Assessment 1955 Hepatitis C Screening 1955 Prostate Cancer Screening-PSA 1955 Hepatitis B Screening 1973 Well Visit 65+ 01/13/2020 Pneumococcal vaccine 65+ (2 of 2 - PCV) 03/24/2021 03/24/2020 Covid-19 Vaccine (2023-2 5 season) 2024 04/13/2022, 11/03/2021, 05/06/2021, Additional history exists Influenza Vaccine (#1) 2024 , 03/24/2020, 05/06/2019, Additional history exists DTaP/Tdap/Td Vaccine (3 - Td or Tdap) 04/22/2030 04/22/2020, 02/27/2017 Zoster Vaccine Completed 07/14/2020, 03/2020, 02/11/2017 Medical Devices Implanted Type Area Pantograph I Engraver Device Identifier Shelf Expiration Date Model / Serial / Lot [employer] Vascade Mvp 6-12fr Venous Closure [id number] - [id number] - [id number] Implanted:Qty: 1 on 10/05/2022 by Loki Shaikh III, MD at [facility] [employer] 07/12/2024 800-612C-1 0U / [id number] / [id number] [employer] Vascade Mvp 6-12fr Venous Closure [id number] - [id number] - [id number] Implanted:Qty: 1 on 10/05/2022 by Loki Shaikh III, MD at [facility] [employer] 07/12/2024 800-612C-1 0U / [id number] / [id number] [employer] Vascade Mvp 6-12fr Venous Closure [id number] - [id number] - [id number] Implanted:Qty: 1 on 10/05/2022 by Loki Shaikh III, MD at [facility] [employer] 07/12/2024 800-612C-1 0U / [id number] / [id number] [employer] Vascade Mvp 6-12fr Venous Closure [id number] - [id number] - [id number] Implanted:Qty: 1 on 05/31/2023 by Loki Shaikh III, MD at [facility] [employer] 02/21/2025 800-612C-1 0U / [id number] / [id number] [employer] Vascade Mvp 6-12fr Venous Closure [id number] - [id number] - [id number] Implanted:Qty: 1 on 05/31/2023 by Loki Shaikh III, MD at [facility] [employer] 02/21/2025 800-612C-1 0U / [id number] / [id number] [employer] Vascade Mvp 6-12fr Venous Closure [id number] - [id number] - [id number] Implanted:Qty: 1 on 05/31/2023 by Loki Shaikh III, MD at [facility] [employer] 02/21/2025 800-612C-1 0U / [id number] / [id number] Procedures Procedure Name Priority Date/Time Associated Diagnosis Comments POCT LIPID PANEL Routine 08/14/2024 1:43 PM MOLD SANDER Mixed hyperlipidemia TYPE AND SCREEN STAT 07/21/2024 10:22 AM MOLD SANDER APTT STAT 07/21/2024 10:22 AM MOLD SANDER PROTIME-INR STAT 07/21/2024 10:[address] ABDOMEN PELVIS W CONTRAST ED 07/21/2024 9:50 AM MOLD SANDER URINALYSIS AND REFLEX TO MICROSCOPIC STAT 07/21/2024 9:09 AM MOLD SANDER POCT CREATININE - DEVICE Routine 07/21/2024 8:38 AM MOLD SANDER EGFR STAT 07/21/2024 8:31 AM MOLD SANDER DIFFERENTIAL AUTO STAT 07/21/2024 8:3 1 AM MOLD SANDER COMPREHENSIVE METABOLIC PANEL STAT 07/21/2024 8:31 AM MOLD SANDER CBC WITH AUTO DIFFERENTIAL STAT 07/21/2024 8:31 AM MOLD SANDER from Last 3 Months Results * POCT lipid panel (08/14/2024 1:43 PM MOLD SANDER) Cholesterol, POC 163 mg/dL Comment:GLU = 119 HDL, POC 38 mg/dL Triglycerides, POC 77 mg/dL LDL Cholesterol POC 110 mg/dL Chol/HDL Ratio, POC 2.9 Non-HDL Cholesterol, POC 125 mg/dL Cholesterol Total, POC 163 mg/dL Capillary blood 08/14/2024 1 :43 PM MOLD SANDER [facility] Beth Obando MD POINT OF CARE TEST ORDE JAMES Final Result * aPTT (07/21/2024 10:22 AM MOLD SANDER) aPTT 38 28 - 38 sec Comment: Interpretive Data Heparin therapeutic range: 66.0 - 100.0 seconds. Range based on correlation with therapeutic heparin activity range of 0.3 - 0.7 Units/mL. Current interpretive data was last revised on 2023. Blood 07/21/2024 10:2 2 AM MOLD SANDER 07/21/2024 10:29 AM MOLD SANDER Mell Easton MD LAB BLOOD ORDERABLES F inal Result [facility] [employer] [place], [place] [id number] * (ABNORMAL) Protime-INR (07/21/2024 10:22 AM MOLD SANDER) PT 17.6(H) 9.7 - 13.0 sec INR 1.61(H) 0.90 - 1.20 [facility] Comment: Interpretive data Oral anticoagulant therapeutic ranges: Venous thromboembolism prophylaxis or treatment: 2.0-3.0 CARDIOLOGY Standard range: 2.0-3.0 High-intensity range: 2.5-3.5 Refer to indication-specific guidelines for appropriate target ranges for prosthetic heart valve replacement. Current interpretive data was last revised on 2019. Blood 07/21/2024 10:2 2 AM MOLD SANDER 07/21/2024 10:29 AM MOLD SANDER Mell Easton MD LAB BLOOD ORDERABLES F inal Result [facility] [place] [address] * Type and screen (07/21/2024 10:22 AM MOLD SANDER) Andrez, indirect Negative ABO Rh O Negative [facility] Blood 07/21/2024 10:2 2 AM MOLD SANDER 07/21/2024 10:35 AM MOLD SANDER Narrative MARÍA HERNANDEZ - 07/21/2024 11:29 AM MOLD SANDER Has the patient had Daratumumab or Isatuximab in the past 6 months?->Unknown Mell Easton MD LAB BLOOD BANK TEST OR DERABLES Final Result [facility] [place] [address] * CT Abdomen Pelvis W Contrast (07/21/2024 9:50 AM MOLD SANDER) Anatomical Region Laterality Modality Body N/A Computed Tomogra phy 07/21/2024 10:0 7 AM MOLD SANDER Impressions 07/21/2024 10:07 AM MOLD SANDER 1. ??CT findings demonstrating rectal inflammation. ??No discrete mass is identified. ??Direct visualization would be recommended to rule out rectal mass. 2. ??Complex left renal lesion with solid component is suspicious for neoplasm. ??MR would be recommended for further evaluation. 3. ??Bilateral indeterminate adrenal nodules. ??These could be also evaluated with MRI. Electronically signed by: Kyle Patel M.D. Narrative 07/21/2024 10:07 AM MOLD SANDER EXAMINATION: CT ABDOMEN PELVIS W CONTRAST HISTORY: [...] by: Kyle Patel M.D. Mell Easton MD IM CT PROCEDURES Karli l Result * Urinalysis reflex to microscopic (07/21/2024 9:09 AM MOLD SANDER) Color, ur Yellow Yellow Clarity, ur Clear Clear [facility] Specific gravity, ur 1.017 1.003 - 1.030 [facility] pH, urine 7.0 [facility] Comment: Interpretive Data ? Urine pH is affected by diet, medications, systemic acid-base disturbances, and renal tubular function. ??pH may affect urinary stone formation. ??For example, urine pH below 6.0 may help reduce the tendency for calcium phosphate stones and pH greater than 6.0 may reduce the tendency for uric acid stone formation. Source: [facility] Current Interpretive Data was last revised on 2017 Protein, ur ql Trace Negative [facility] Glucose, ur ql Negative Negative [facility] Ketones, ur Negative Negative [facility] Bilirubin, ur Negative Negative [facility] Blood, ur Negative Negative [facility] Urobilinogen, ur <2.0 <2.0 mg/dL [facility] Nitrite, ur Negative Negative [facility] Leukocyte esterase, ur Negative Negative [facility] UA reflex comment Reflex conditions for microscopic UA not met. [facility] Urine 07/21/2024 9:09 AM MOLD SANDER 07/21/2024 9:25 AM MOLD SANDER us Mell Easton MD LAB URINE ORDERABLES F inal Result Performing Organization Address City/[facility]/ZIP Co de Phone Number [facility] [place] [address] * POCT creatinine (07/21/2024 8:38 AM MOLD SANDER) Pathologist [facility] Creatinine POC 0.8 0.7 - 1.3 mg/dL Blood 07/21/2024 8:38 AM MOLD SANDER 07/21/2024 8:38 AM MOLD SANDER us Dennis Jennings MD LAB POCT ORDERABLES - MYAH CE Final Result Performing Organization Address [facility]/ZIP Co de Phone Number [facility] [place] [address] * eGFR (07/21/2024 8:31 AM MOLD SANDER) Pathologist [facility] eGFR >90 >=60 mL/min/1. 73 m2 Comment: [...] data was last reviewed 2021. Blood 07/21/2024 8:31 AM MOLD SANDER 07/21/2024 8:41 AM MOLD SANDER us Mell Easton MD LAB BLOOD ORDERABLES F inal Result [facility] [place] [address] * (ABNORMAL) Differential, auto (07/21/2024 8:31 AM MOLD SANDER) [facility] Neutrophil abs 7.8(H) 1.5 - 6.5 K/cumm Imm gran abs 0.1 0.0 - 0.1 K/cumm [facility] Lymphocyte abs 1.9 0.8 - 3.3 K/cumm [facility] Monocyte abs 1.4(H) 0.2 - 0.8 K/cumm [facility] Eosinophil abs 0.2 0.0 - 0.5 K/cumm [facility] Basophil abs 0.0 0.0 - 0.1 K/cumm [facility] Neutrophil pct 68.7 % [facility] Comment: Interpretive Data Percent cell count reference ranges are not reported, since discordance with absolute values may lead to misinterpretation of CBC data. Current Interpretive Data was last revised on 2017. Imm gran pct 0.5 % [facility] Comment: Interpretive Data Percent cell count reference ranges are not reported, since discordance with absolute values may lead to misinterpretation of CBC data. Current Interpretive Data was last revised on 2017. Lymphocyte pct 16.4 % [facility] Comment: Interpretive Data Percent cell count reference ranges are not reported, since discordance with absolute values may lead to misinterpretation of CBC data. Current Interpretive Data was last revised on 2017. Monocyte pct 12.2 % [facility] Comment: Interpretive Data Percent cell count reference ranges are not reported, since discordance with absolute values may lead to misinterpretation of CBC data. Current Interpretive Data was last revised on 2017. Eosinophil pct 1.8 % [facility] Comment: Interpretive Data Percent cell count reference ranges are not reported, since discordance with absolute values may lead to misinterpretation of CBC data. Current Interpretive Data was last revised on 2017. Basophil pct 0.4 % [facility] Comment: Interpretive Data Percent cell count reference ranges are not reported, since discordance with absolute values may lead to misinterpretation of CBC data. Current Interpretive Data was last revised on 2017. Blood 07/21/2024 8:31 AM MOLD SANDER 07/21/2024 8:41 AM MOLD SANDER us Mell Easton MD LAB BLOOD ORDERABLES F inal Result [facility] [place] [address] * (ABNORMAL) CBC with auto differential (07/21/2024 8:31 AM MOLD SANDER) [facility] WBC 11.3(H) 3.8 - 9.9 K/cumm Hgb 14.5 13.0 - 17.5 g/dL [facility] Hct 42.7 38.9 - 50.3 % [facility] Plt 272 150 - 400 K/cumm [facility] MPV 9.9 9.1 - 12.3 fL [facility] RBC 4.71 4.30 - 5.80 M/cumm [facility] MCV 90.7 81.3 - 96.4 fL [facility] MCH 30.8 27.1 - 33.3 pg [facility] MCHC 34.0 32.3 - 35.7 g/dL [facility] RDW CV 12.4 11.1 - 14.9 % [facility] RDW SD 41.8 35.7 - 48.1 fL [facility] NRBC abs 0.00 0.00 - 0.01 K/cumm [facility] Blood 07/21/2024 8:31 AM MOLD SANDER 07/21/2024 8:41 AM MOLD SANDER us Mell Easton MD LAB BLOOD ORDERABLES F inal Result [facility] [place] [address] * Comprehensive metabolic panel (07/21/2024 8:31 AM MOLD SANDER) [facility] Sodium 140 135 - 145 mmol/L Potassium, pl 4.0 3.3 - 4.9 mmol/L [facility] Chloride 101 97 - 110 mmol/L [facility] CO2 28 22 - 32 mmol/L [facility] Anion gap 11 2 - 15 mmol/L [facility] BUN 12 6 - 25 mg/dL [facility] Creatinine 0.80 0.80 - 1.30 mg/dL [facility] Glucose 119 70 - 199 mg/dL [facility] Comment: Interpretive Data Fasting glucose >/= 126 [...] 2022. Calcium 9.1 8.5 - 10.3 mg/dL [facility] Bilirubin, total 0.6 0.1 - 1.2 mg/dL [facility] Protein, pl 6.8 6.5 - 8.5 g/dL [facility] Albumin 3.8 3.5 - 5.0 g/dL [facility] Alk phos 103 40 - 130 Units/L [facility] ALT 20 7 - 55 Units/L [facility] AST 17 10 - 50 Units/L [facility] Blood 07/21/2024 8:31 AM MOLD SANDER 07/21/2024 8:41 AM MOLD SANDER us Mell Easton MD LAB BLOOD ORDERABLES F inal Result [facility] [place] [address] from Last 3 Months Insurance [facility] MEDICARE AET MEDICARE AET MEDICARE Care Teams Nurse Educator Relationship Specialty Start Date End Date Bennett Shaikh MD [address] [facility] [address] [place] [address] PCP - General Family Medicine 06/09/22
--- OUTSIDE RECORDS SUMMARY | 2024-08-28 13:01 | XMS_ITS | Patient Health Record ---
Author Organization [facility] Address [address] [place] [address] [address] [place] [address] Care Team Providers Care Child Support Specialist Name Role Phone Gil Keyes MD Unavailable Unavailable Reason For Referral No Information Plan Of Treatment No Information Insurance Providers Payer Name Payer Address Payer Phone Subscriber Number Group Number Insured Name Patient Relationship to Insured Coverage Start Date Coverage End Date [facility] [address] [place] [address] [phone] [id number] Kyle Hilario Self - patient is the insured 7
== END 2024-08-25 11:24 | disposition home or self-care (01) ==
LOC: ANHSURGERY 11:27
PROVIDERS: Anesthesiology; PCP Family Medicine; Visit Provider Surgery
DX: Z01.818 Encounter for other preprocedural examination (principal); K62.89 Other specified diseases of anus and rectum; I10 Essential (primary) hypertension; I25.2 Old myocardial infarction; I49.8 Other specified cardiac arrhythmias
CPT/HCPCS: 36415; 80048; 85025; 93005

== ENCOUNTER 2024-08-28 00:41 | Day surgery (SDC) | payer MEDICARE, SELFPAY ==
--- NOTE | 2024-08-15 11:31 | PC.NURSE ---
Report to the Outpatient Waiting Room, entrance under the green pavilion located off [facility], at time _10 AM on date __08/28/24 . Planned Procedure Time: _1200 NOON .? Time changes happen often and if your time is changed the preop area will call you the afternoon before. - You and your visitor will be asked to self-screen and do not enter if you have any COVID symptoms. Please call surgeon if you need to reschedule. - A mask is optional within the hospital at this time. Patients may have clear liquids (water, carbonated beverages, clear teas, apple juice) until 3 hours prior to surgery( 9 AM) with a maximum of 20 ounces. - No food from midnight until time of surgery and no smoking. This includes no chewing gum, candy or mints. Take only the following medications with a SIP of water on the morning of surgery: ____METOPROLOL DO NOT STOP ANY OF YOUR OTHER PRESCRIPTION MEDICATIONS PRIOR TO SURGERY EXCEPT THE FOLLOWING Medications to discontinue per physician ___ELIQUIS HOLD 2 DAYS PRE OP PER DR VARGAS.LAST DOSE 08/25/24. HOLD ALL VITAMINS AND SUPPLEMENTS 3 DAYS PRE OP LAST DOSE 08/24/24 Please no make-up, nail paraguayan, hairspray, perfume, deodorant, or body powder the day of surgery.? No jewelry (including any body piercings) or valuables the day of surgery, leave them at home.? Please take a shower or bath the night before, or the morning of, surgery with an antibacterial soap.? Wear comfortable, loose fitting clothing.? Children are encouraged to wear pajamas. - Jewelry must be removed prior to entering the operating room.? Rings and piercings that are not removed may be cut off. - The hospital will not accept responsibility for valuables.? - Please leave all valuables, including medications, at home the day of surgery. If you are going home after surgery, a licensed bobtail driver must drive you home.? - NO public transportation without another adult if you receive anesthesia. - We recommend that an adult stay with you for 24 hours following discharge. - We also recommend that you do not drive, make important decision, drink alcoholic beverages, or take any drugs that were not prescribed by your health care provider for at least 24 hours after your discharge time. Follow any additional instructions given to you from your surgeon. Telephone instructions given to __PATIENT and asked if any additional questions and then verbalized understanding. Patient advised to call surgeon office or pre surgery nurse liaison [phone] if any additional questions.
[2024-08-15 11:59] VITALS: BMI 33.0
--- NOTE | 2024-08-18 14:16 | PC.NURSE ---
Report to the Outpatient Waiting Room, entrance under the green pavilion located off [facility], at time _10am on date _08/28/24 . Planned Procedure Time: _12 noon .? Time changes happen often and if your time is changed the preop area will call you the afternoon before. - You and your visitor will be asked to self-screen and do not enter if you have any COVID symptoms. Please call surgeon if you need to reschedule. - A mask is optional within the hospital at this time. CLEAR LIQUIDS DAY PRIOR TO SURGERY. THEN NOTHING TO EAT OR DRINK AFTER MIDNIGHT PER DR TYLER Take only the following medications with a SIP of water on the morning of surgery: __METOPROLOL DO NOT STOP ANY OF YOUR OTHER PRESCRIPTION MEDICATIONS PRIOR TO SURGERY EXCEPT THE FOLLOWING Medications to discontinue per physician __ELIQUIS HOLD 2 DAYS PRE OP PER DR VARGAS.LAST DOSE 08/25/24 HOLD ALL VITAMINS AND SUPPLEMENTS 3 DAYS PRE OP.LAST DOSE 08/24/24 FLEETS ENEMA NIGHT BEFORE SURGERY AND MORNING OF SURGERY UNLESS PAINFUL RECTAL CONDITION PER DR TYLER BISACODYL TAB 5 MG BY MOUTH NIGHT BEFORE SURGREY PER DR TYLER Please no make-up, nail occitan, hairspray, perfume, deodorant, or body powder the day of surgery.? No jewelry (including any body piercings) or valuables the day of surgery, leave them at home.? Please take a shower or bath the night before, or the morning of, surgery with an antibacterial soap.? Wear comfortable, loose fitting clothing.? Children are encouraged to wear pajamas. - Jewelry must be removed prior to entering the operating room.? Rings and piercings that are not removed may be cut off. - The hospital will not accept responsibility for valuables.? - Please leave all valuables, including medications, at home the day of surgery. If you are going home after surgery, a licensed car driver must drive you home.? - NO public transportation without another adult if you receive anesthesia. - We recommend that an adult stay with you for 24 hours following discharge. - We also recommend that you do not drive, make important decision, drink alcoholic beverages, or take any drugs that were not prescribed by your health care provider for at least 24 hours after your discharge time. For Pediatric surgeries, we recommend two adults accompany the child home. Follow any additional instructions given to you from your surgeon. Telephone instructions given to __PATIENT and asked if any additional questions and then verbalized understanding. Patient advised to call surgeon office or pre surgery nurse liaison [phone] if any additional questions.
--- NOTE | 2024-08-26 14:57 | PM.SD2 ---
Same Day Admit/Disch: HPI History of Present Illness Chief complaint: rectal pain Narrative: Kyle Hilario is a 69 year old male who started having rectal problems in July. He recalls helping his up off the floor after she fell. Following that, he noticed 2 perianal nodules. He also began noting small amounts of bleeding. There was tenderness as well. About a week later, on 07/21/2024, he had a large hard bowel movement and had significant rectal bleeding afterward. He went to the emergency room at [facility]. No definite diagnosis was made but possibility of hemorrhoids or thrombosed hemorrhoids was entertained. He had a CT scan of the pelvis which showed some rectal inflammation but no masses or other significant abnormalities. He was treated with antibiotics but continued to have rectal bleeding and some discomfort. He was seen in the office a week later, on 07/28/2024, and was passing minimal amounts of blood and little if any rectal pain. His exam at that time was suspicious for a fistula in ANO. There was an open wound in the perianal area but no evidence of a thrombosed hemorrhoid. After discussion, he is taken to surgery now for rectal exam under anesthesia, possible anal fistulotomy. Patient does take Eliquis which has been held for his surgery. The Eliquis is for history of atrial fibrillation. [facility] Past Medical History Medical History Paroxysmal A-fib Obesity Anxiety History of asbestos exposure Essential (primary) hypertension Surgical History Surgical History History of lumbar fusion H/O cardiac radiofrequency ablation Family History Family History Father Heart disease Multiple sclerosis Mother Macular degeneration Dementia Sibling , tobacco abuse, pus in lung No problems noted. Social History Social History Smoking status: Never smoker Second hand tobacco smoke exposure: No Alcohol intake: current Drinks per week: 10 Alcohol use details: BEER/WINE Substance use: current Substance use type: marijuana Other substance usage details: 5 X WK Last use: 08/14/24 Do You Feel Safe in your Home?: Yes Lack of Transportation: No Lack of Food: Never True Current Housing: I Have Housing Concerned About Future Housing: No Difficulty Paying Gas/Electric Bills: No Difficulty Paying for Meds: No Currently Unemployed: No Education: Associate Degree Difficulty w/ Childcare or Family Care: No Living arrangements: alone Occupation/Education: retired Additional occupation/education comments: [employer] Gender identity (if verbalized by the patient): Male Sexual Orientation (if Verbalized by the Patient): Straight or Heterosexual Spiritual care concerns: No Same Day Admit/Disch: Med Pre-admit Medications Home Medications ?Medication ?Instructions ?Recorded ?Confirmed ?Type Quercetin Phytosome 1 tab-cap PO DAILY 10/20/20 08/15/24 History Zicam 1 spray EACH NARE HS 10/20/20 08/15/24 History ascorbic acid (vitamin C) 1,000 mg 1 cap PO DAILY 10/20/20 08/15/24 History capsule,extended release cetirizine 10 mg capsule (Wal-Zyr 10 mg PO DAILY 10/20/20 08/15/24 History (cetirizine)) glucosamine sulf dipot 1 cap PO DAILY 10/20/20 08/15/24 History chlr,msm,chond 550 mg-C 30 mg-kerri 1 mg capsule (Glucosamine Chondroitin) magnesium oxide 400 mg PO DAILY 10/20/20 08/15/24 History omega-3 fatty acids 1,000 mg PO DAILY 10/20/20 08/15/24 History potassium 99 mg tablet 99 mg PO DAILY 10/20/20 08/15/24 History vit C 250 mg-vit E 90 mg-zinc 40 1 tablet PO BID 10/20/20 08/15/24 History mg-copper 1 [id number] capsule (PreserVision AREDS-2) apixaban 5 mg tablet (Eliquis) 5 mg PO BID 09/11/22 08/15/24 History metoprolol succinate 25 mg 25 mg PO DAILY 09/11/22 08/28/24 History tablet,extended release 24 hr losartan 100 mg tablet 100 mg PO DAILY #90 tabs 03/24/24 08/15/24 Rx hydrochlorothiazide 12.5 mg tablet 12.5 mg PO DAILY #90 tabs 06/23/24 08/15/24 Rx dibucaine 1 % rectal ointment 1 applic RECTAL TID PRN rectal 07/16/24 08/15/24 Rx discomfort #56 grams vitamin B complex 1 cap PO 3XW 08/15/24 08/15/24 History oxycodone-acetaminophen 5 mg-325 0.5 - 1 tablet PO Q4H PRN pain #15 08/28/24 Rx mg tablet (Percocet) tabs Review of Systems Review of Systems All systems reviewed & are unremarkable except as noted in HPI and below (HPI) Exam Const: General: comfortable, no acute distress, alert and awake HENMT: Head: normocephalic and atraumatic Mouth: Yes Normal oral and palatal mucosa present Eyes: Conjunctivae: conjunctivae normal Pupils: Equal, round and reactive pupils present EOM: EOMs intact bilaterally Neck: Neck: normal visual inspection, no lymphadenopathy and nontender Resp: Effort & Inspection: normal respiratory effort Auscultation: clear to auscultation bilaterally Cardio: Rate: regular rate Rhythm: regular rhythm Heart sounds: no gallops, no murmurs and no rubs GI: Inspection: non-distended GI Palp: Yes Soft to palpation, No Tenderness to palpation present (GI), No Hepatomegaly present and No Splenomegaly present Rectal Exam: normal sphincter tone, External hemorrhoid(s) present (Right anterior quadrant, small) and Fistula present (GI) (Possible external opening with a 1 x 0.6 cm wound in right posterior quadra) Skin: Lesions: no lesions Rashes: no rashes Neuro: General: no focal motor deficits and CN's II-XI intact bilaterally Cranial nerves: Yes Equal, round and reactive pupils present, Yes Bilaterally intact EOM present, Yes facial symmetry and Yes Midline tongue present Speech: normal speech Motor exam (neuro): 5/5 motor strength present throughout and Motor abnormalities not present Extrem: General: no clubbing, cyanosis or edema and edema Psych: Affect: normal affect Thought process: Normal thought process present Insight: Good insight present (Psych) DS: Summary Time Spent with Patient Time attestation: Total time spent providing and/or coordinating discharge services: DS: Admitting Diagnosis Discharge Date 08/28/2024 Admitting Diagnosis Rectal pain and bleeding-history suggestive of thrombosed external hemorrhoid but was not seen on exam. Open area was suggestive of anal fistula. Plan to proceed with rectal exam under anesthesia, possible fistulotomy. Additional intervention based on intraoperative findings may be needed. All questions were answered, patient agrees to go ahead. History atrial fibrillation Chronic anticoagulation-Eliquis has been held Essential hypertension DS: Discharge Diagnosis Discharge Diagnosis (1) Anal fistula, complex, initial: Code(s): K60.321 - Anal fistula, complex, initial Status: Chronic Assessment and Plan: Status post anal fistulotomy 08/28/[address] Padron (2) Chronic anticoagulation: Code(s): Z79.01 - nursing home (current) use of anticoagulants Status: Chronic Assessment and Plan: Eliquis on hold for another 48 hours (3) Paroxysmal A-fib: Code(s): I48.0 - Paroxysmal atrial fibrillation Status: Chronic Discharge Plan Discharge Patient Disposition: Home, Self-Care Discharge Instructions: Discharge Instructions for Anorectal Surgery Dr. Padron 1. May discharge from Outpatient Surgery area or Surgical Floor when stable per protocol. 2. Activity: Remove dressing and start Sitz baths in a.m. following surgery. Once at home, all patients should take 10-20 minute Sitz baths at least two times per day and as needed after each bowel movement. Rest around the house for the next 1-2 days, taking frequent walks. No driving for 2-3 days or while taking narcotic pain medications. 3. Diet: Regular diet with 6-8 glasses of water per day. Eat plenty of fruits and vegetables. 4. Medications: ? Resume all home medications except Eliquis. Resume Eliquis on Sunday, August 31, 2024. ? Metamucil 1 tablespoon PO twice a day ? Mineral Oil 1 tablespoon PO twice a day ? Percocet 5/325 0.5 PO q 4 hours as needed for moderate pain. ? Percocet 5/325 1 PO q 6 hours as needed for severe pain. ? Acetaminophen 650 mg PO q 6 hours as needed for mild pain. ? Keep 4 x 4 gauze over rectal wound except when showering or doing Sitz baths. Replace daily or twice a day and as needed based on drainage and saturation. Prescriptions for the above medication will be provided at the time of discharge or they can be bought [id number]. 5. Follow-up: call office for appointment in 10-14 days or as previously scheduled. 6. Call office if: ? Sudden increase in pain, swelling or incisional drainage or bleeding occurs. ? Fever > 101 degrees F. ? Nausea and vomiting occur. ? Inability to urinate. 7. Other orders: Revised: 07/19 Patient Language: Luxembourgish Stand Alone Forms: General Discharge Instructions Follow-up/Referrals: Dragan Padron MD [Physician] - 3 Weeks Discharge Medications: New oxycodone-acetaminophen [Percocet] 5-325 mg tablet 0.5 - 1 tablet PO Q4H PRN (Reason: pain) Qty: 15 0RF Continued metoprolol succinate 25 mg tablet extended release 24 hr 25 mg PO DAILY dibucaine 1 % ointment 1 applic RECTAL TID PRN (Reason: rectal discomfort) Qty: 56 0RF potassium 99 mg Tablet 99 mg PO DAILY ascorbic acid (vitamin C) 1,000 mg Capsule, Extended Release 1 cap PO DAILY omega-3 fatty acids Capsule 1,000 mg PO DAILY Wal-Zyr (cetirizine) 10 mg Capsule 10 mg PO DAILY magnesium oxide 400 mg magnesium Capsule 400 mg PO DAILY PreserVision AREDS-2 250-90-40-1 mg Capsule 1 tablet PO BID Glucosamine Chondroitin 550-30-1 mg Capsule 1 cap PO DAILY Quercetin Phytosome 1 tab-cap PO DAILY Zicam 1 spray EACH NARE HS vitamin B complex Capsule 1 cap PO 3XW losartan 100 mg tablet 100 mg PO DAILY Qty: 90 2RF Rx Instructions: TAKE 1 TABLET BY MOUTH DAILY hydrochlorothiazide 12.5 mg tablet 12.5 mg PO DAILY Qty: 90 2RF Rx Instructions: TAKE 1 TABLET BY MOUTH DAILY Held Eliquis 5 mg tablet 5 mg PO BID Hold Instructions: Resume on 08/31/24. Resume Eliquis on Sunday08/31/2024. Hold Eliquis until then.
[2024-08-28] VITALS (8 sets, daily range): BP systolic 110–168; BP diastolic 63–91; PULSE 65–93; RESP 17–19; TEMP 35.7–36.4; O2SAT 97–100; BMI 32.4
[2024-08-28] MEDS: KETOROLAC 15 MG/ML VIAL (*BKC) IV PUSH (10:27)
[2024-08-28] MEDS: ACETAMINOPHEN 500 MG TABLET 1000 MG PO (10:27)
[2024-08-28] MEDS: LACTATED RINGERS 1,000 ML 30 ML IV CONT (10:27)
--- NOTE | 2024-08-28 11:39 | WPDHPUPDATE1 ---
History and Physical Update Update Date/Time: 08/28/24 11:39 History and Physical has been reviewed, including an updated exam of the patient. There are NO changes in the patient's condition. Risks, benefits, and alternatives have been discussed and questions answered. Patient agrees to proceed with procedure.
[2024-08-28] MEDS: ceFAZolin 2 GM/D5W 50 ML 2 GM/50 ML BAG IVPB (12:15)
[2024-08-28] MEDS: BUPIVACAINE/EPINEPHRINE 0.5% 30 ML VIAL INFILTRATE (12:41)
--- NOTE | 2024-08-28 13:02 | W.PM.PROC2 ---
Procedure Note - Detailed Date of Procedure 08/28/24 Pre-op Diagnosis Fistula in ano Post-op Diagnosis Same Procedure Performed Anal fistulotomy Surgeon Dragan Padron MD Driver/Refuse Collector Anurag BURROUGHS Anesthesia General and Local Indications Patient relates a swollen bubble on his bethany anal skin dating back to last summer. He relates that also to heavy lifting associated with changing his residence. He had persistent bloody drainage. He was seen in the office and found to have a right-sided posterior opening about 1 cm in size suspicious for an external opening and anal fistula. He is taken to surgery now for rectal exam under anesthesia possible anal fistulotomy. Findings There was purulent fluid draining from the right posterior perianal opening making the diagnosis much more evident than it was at his office visit. An internal opening was also evident draining purulent fluid. Probes showed an intersphincteric anal fistula. No abscess was seen Description of Procedure Patient was taken to surgery and induced into general anesthesia. He was then placed in prone claude-knife position. The buttocks were taped apart. Prep and drape was carried out. A small Hill Banerjee anoscope was placed in the rectum. As noted above, purulent fluid was draining from the right posterior external opening as well as from an internal opening in the right posterior area. Probing showed this to be a straight fistula that was superficial and not concerning for a complicated fistula. With the probe in place, I infiltrated local anesthetic all around the area of the fistula and the skin over the fistula. I then used cautery and divided the skin and other tissues overlying the fistula tract. There was some redundant tissue that was removed. I used a curette to remove the granulation tissue in the fistula tract. Cautery was used for hemostasis. All looked good. Xeroform gauze was then placed over the fistulotomy wound. Bulky fluffs were placed over the rectum and perianal skin. Medipore tape was placed as was [employer] panties. Patient was returned to a supine position, awakened and extubated. He was then taken to recovery in good condition. Sponge and needle counts were correct x2. Estimated Blood Loss -5 Drains No Packing No Pathology None sent Complications None Condition Stable Disposition PACU [facility] Billing Surgery - Charge Forward: Surgery Billing (Anal fistulotomy)
[2024-08-28] MEDS: oxyCODONE HCL (*CRX) 5 MG TAB IR PO (14:08)
--- OUTSIDE RECORDS SUMMARY | 2024-08-29 03:42 | XMS_ITS | CONTINUITY OF CARE DOCUMENT ---
Author Name jennifer rodriguez Address Unknown Organization [facility] Address [address] [place] [address] [address] [place] [address] Phone [phone] Care Team Providers Care Cisco Network Architect Name Role Phone jennifer rodriguez Unavailable Unavailable INSURANCE PROVIDERS Payer name Policy type / Coverage type [place] red green party ID [place] [employer] insurance company [id number]
--- OUTSIDE RECORDS SUMMARY | 2024-08-29 03:43 | XMS_ITS | Patient Health Record ---
Author Organization [facility] Address [address] [place] [address] [address] [place] [address] Care Team Providers Care Contractor Field Hauling Name Role Phone Gil Keyes MD Unavailable Unavailable Reason For Referral No Information Plan Of Treatment No Information Insurance Providers Payer Name Payer Address Payer Phone Subscriber Number Group Number Insured Name Patient Relationship to Insured Coverage Start Date Coverage End Date [facility] [address] [place] [address] [phone] [id number] Kyle Hilario Self - patient is the insured 7
--- OUTSIDE RECORDS SUMMARY | 2024-08-29 03:43 | XMS_ITS | Referral Summary ---
Author Organization [facility] Address [address] [place] [address] Care Team Providers Care Scrubber Operator Name Role Phone Bennett Shaikh MD Primary Care Provider Encounters Date Type Department Care Team Description 08/14/2024 10:15 AM ACLS NURSE Office Visit [facility] [address] [place] [address] Britt Obando MD Paroxysmal atrial fibrillation (CMS/HCC) (HCC) (Primary Dx); Primary hypertension; Mixed hyperlipidemia 07/21/2024 7:44 AM ACLS NURSE - 07/21/2024 11:54 AM [facility] Emergency [facility] Emergency Department [address] [place] [address] Dennis Jennings MD Gastrointestinal hemorrhage, unspecified gastrointestinal [...] months Assessment & Plan (09/05/2022 10:27 AM ACLS NURSE): Paroxysmal AF and atrial flutter with very high arrhythmia burden (24%) by ambulatory monitoring. Associated with mild symptoms. Rates elevated during events. Discussed arrhythmia management at length with patient. We reviewed rate control, AAD therapy and catheter ablation. Pt strongly prefers ablation. I reviewed the catheter ablation procedure in detail, including procedural steps, risks/benefits, expected outcomes, recovery. He understands and wishes to proceed. [id number] = 2 (age, hypertension). --Atrial fibrillation ablation w/anesthesia --Continue apixaban 5 mg BID. Hold starting the evening prior to procedure --Continue metoprolol XL 25 mg daily --F/u on echocardiogram results ( previously ordered) Paroxysmal atrial flutter ([facility]) 07/21/2022 Hypertension 06/09/2022 Resolved Problems Problem Noted [...] on file Legal Sex Male 1:49 AM ACLS NURSE Gender Identity Male 09/01/2022 10:15 AM ACLS NURSE Sexual Orientation Not on file Last Filed Vital Signs Vital Sign Reading Time Taken Comments Blood Pressure 138/70 08/14/2024 10:14 AM ACLS NURSE Pulse 73 08/14/2024 10:14 AM ACLS NURSE Temperature 37.1 ??C (98.8 ??F) 07/21/2024 7:20 AM CS T Respiratory Rate 15 07/21/2024 10:3 0 AM ACLS NURSE Oxygen Saturation 96% 08/14/2024 10: 14 AM ACLS NURSE Inhaled Oxygen Concentration - - Weight 93.8 kg (206 lb 12.8 oz) 025 10:14 AM ACLS NURSE Height 167.6 cm (5' 6 ) 08/14/2024 10:1 4 AM ACLS NURSE Body Mass Index 33.38 08/14/2024 10:14 AM ACLS NURSE Plan of Treatment Not on file Medical Devices Implanted Type [employer] In[employer] Device Identifier Shelf Expiration Date Model / Serial / Lot [employer] Vascade Mvp 6-12fr Venous Closure [id number] - [id number] - [id number] Implanted:Qty: 1 on 10/05/2022 by Loki Shaikh III, MD at [facility] [employer] 07/12/2024 800-612C-1 0U / [id number] / [id number] [employer] Vascade Mvp 6-12fr Venous Closure [id number] - [id number] - [id number] Implanted:Qty: 1 on 10/05/2022 by Loki Shaikh III, MD at [facility] [employer] 07/12/2024 800-612C-1 0U / [id number] / [id number] [employer] Vascade Mvp 6-12fr Venous Closure [id number] - [id number] - [id number] Implanted:Qty: 1 on 10/05/2022 by Loki Shaikh III, MD at [facility] [employer] 07/12/2024 800-612C-1 0U / [id number] / [id number] [employer] Vascade Mvp 6-12fr Venous Closure [id number] - [id number] - [id number] Implanted:Qty: 1 on 05/31/2023 by Loki Shaikh III, MD at [facility] [employer] 02/21/2025 800-612C-1 0U / [id number] / [id number] [employer] Vascade Mvp 6-12fr Venous Closure [id number] - [id number] - [id number] Implanted:Qty: 1 on 05/31/2023 by Loki Shaikh III, MD at [facility] [employer] 02/21/2025 800-612C-1 0U / [id number] / [id number] [employer] Vascade Mvp 6-12fr Venous Closure [id number] - [id number] - [id number] Implanted:Qty: 1 on 05/31/2023 by Loki Shaikh III, MD at [facility] [employer] 02/21/2025 800-612C-1 0U / [id number] / [id number] Procedures Procedure Name Priority Date/Time Associated Diagnosis Comments POCT LIPID PANEL Routine 08/14/2024 1:43 PM ACLS NURSE Mixed hyperlipidemia TYPE AND SCREEN STAT 07/21/2024 10:22 AM ACLS NURSE APTT STAT 07/21/2024 10:22 AM ACLS NURSE PROTIME-INR STAT 07/21/2024 10:[address] ABDOMEN PELVIS W CONTRAST ED 07/21/2024 9:50 AM ACLS NURSE URINALYSIS AND REFLEX TO MICROSCOPIC STAT 07/21/2024 9:09 AM ACLS NURSE POCT CREATININE - DEVICE Routine 07/21/2024 8:38 AM ACLS NURSE EGFR STAT 07/21/2024 8:31 AM ACLS NURSE DIFFERENTIAL AUTO STAT 07/21/2024 8:3 1 AM ACLS NURSE COMPREHENSIVE METABOLIC PANEL STAT 07/21/2024 8:31 AM ACLS NURSE CBC WITH AUTO DIFFERENTIAL STAT 07/21/2024 8:31 AM ACLS NURSE from Last 3 Months Results * POCT lipid panel (08/14/2024 1:43 PM ACLS NURSE) Cholesterol, POC 163 mg/dL Comment:GLU = 119 HDL, POC 38 mg/dL Triglycerides, POC 77 mg/dL LDL Cholesterol POC 110 mg/dL Chol/HDL Ratio, POC 2.9 Non-HDL Cholesterol, POC 125 mg/dL Cholesterol Total, POC 163 mg/dL Capillary blood 08/14/2024 1 :43 PM ACLS NURSE us Britt Obando MD POINT OF CARE TEST SHANTA RAMIREZ Final Result * aPTT (07/21/2024 10:22 AM ACLS NURSE) aPTT 38 28 - 38 sec Comment: Interpretive Data Heparin therapeutic range: 66.0 - 100.0 seconds. Range based on correlation with therapeutic heparin activity range of 0.3 - 0.7 Units/mL. Current interpretive data was last revised on 2023. Blood 07/21/2024 10:2 2 AM ACLS NURSE 07/21/2024 10:29 AM ACLS NURSE us Mell Easton MD LAB BLOOD ORDERABLES F inal Result Performing Organization Address City/State/[facility] Co de Phone Number [facility] [place] [address] * (ABNORMAL) Protime-INR (07/21/2024 10:22 AM ACLS NURSE) PT 17.6(H) 9.7 - 13.0 sec INR 1.61(H) 0.90 - 1.20 [facility] Comment: Interpretive data Oral anticoagulant therapeutic ranges: Venous thromboembolism prophylaxis or treatment: 2.0-3.0 CARDIOLOGY Standard range: 2.0-3.0 High-intensity range: 2.5-3.5 Refer to indication-specific guidelines for appropriate target ranges for prosthetic heart valve replacement. Current interpretive data was last revised on 2019. Blood 07/21/2024 10:2 2 AM ACLS NURSE 07/21/2024 10:29 AM ACLS NURSE Mell Easton MD LAB BLOOD ORDERABLES F inal Result Performing Organization Address City/[facility]/ZIP Co de Phone Number [facility] Department [place] [address] * Type and screen (07/21/2024 10:22 AM ACLS NURSE) Andrez, indirect Negative ABO Rh O Negative [facility] Blood 07/21/2024 10:2 2 AM ACLS NURSE 07/21/2024 10:35 AM ACLS NURSE Narrative [facility] - 07/21/2024 11:29 AM ACLS NURSE Has the patient had Daratumumab or Isatuximab in the past 6 months?->Unknown Mell Easotn MD LAB BLOOD BANK TEST OR DERABLES Final Result Performing Organization Address [facility] Co de Phone Number [facility] Department [place] [address] * CT Abdomen Pelvis W Contrast (07/21/2024 9:50 AM ACLS NURSE) Anatomical Region Laterality Modality Body N/A Computed Tomogra phy 07/21/2024 10:0 7 AM ACLS NURSE Impressions 07/21/2024 10:07 AM ACLS NURSE 1. ??CT findings demonstrating rectal inflammation. ??No discrete mass is identified. ??Direct visualization would be recommended to rule out rectal mass. 2. ??Complex left renal lesion with solid component is suspicious for neoplasm. ??MR would be recommended for further evaluation. 3. ??Bilateral indeterminate adrenal nodules. ??These could be also evaluated with MRI. Electronically signed by: Kyle Patel M.D. Narrative 07/21/2024 10:07 AM ACLS NURSE EXAMINATION: CT ABDOMEN PELVIS W CONTRAST HISTORY: [...] Urinalysis reflex to microscopic (07/21/2024 9:09 AM ACLS NURSE) Color, ur Yellow Yellow Clarity, ur Clear Clear [facility] Specific gravity, ur 1.017 1.003 - 1.030 [facility] pH, urine 7.0 [facility] Comment: Interpretive Data ? Urine pH is affected by diet, medications, systemic acid-base disturbances, and renal tubular function. ??pH may affect urinary stone formation. ??For example, urine pH below 6.0 may help reduce the tendency for calcium phosphate stones and pH greater than 6.0 may reduce the tendency for uric acid stone formation. Source: [facility] [employer] Current Interpretive Data was last revised on 2017 Protein, ur ql Trace Negative [facility] Glucose, ur ql Negative Negative [facility] Ketones, ur Negative Negative [facility] Bilirubin, ur Negative Negative [facility] Blood, ur Negative Negative [facility] Urobilinogen, ur <2.0 <2.0 mg/dL [facility] Nitrite, ur Negative Negative [facility] Leukocyte esterase, ur Negative Negative [facility] UA reflex comment Reflex conditions for microscopic UA not met. [facility] Urine 07/21/2024 9:09 AM ACLS NURSE 07/21/2024 9:25 AM ACLS NURSE Mell Easton MD LAB URINE ORDERABLES F inal Result [facility] [place] [address] * POCT creatinine (07/21/2024 8:38 AM ACLS NURSE) Pathologist [facility] Creatinine POC 0.8 0.7 - 1.3 mg/dL Blood 07/21/2024 8:38 AM ACLS NURSE 07/21/2024 8:38 AM ACLS NURSE us Dennis Jennings MD LAB POCT ORDERABLES - YMAH CE Final Result [facility] [place] [address] * eGFR (07/21/2024 8:31 AM ACLS NURSE) Pathologist [facility] eGFR >90 >=60 mL/min/1. 73 m2 Comment: [...] reviewed 2021. Blood 07/21/2024 8:3 1 AM ACLS NURSE 07/21/2024 8:41 AM ACLS NURSE us Mell Easton MD LAB BLOOD ORDERABLES F inal Result [facility] [place] [address] * (ABNORMAL) Differential, auto (07/21/2024 8:31 AM ACLS NURSE) Neutrophil abs 7.8(H) 1.5 - 6.5 K/cumm Imm gran abs 0.1 0.0 - 0.1 K/cumm [facility] Lymphocyte abs 1.9 0.8 - 3.3 K/cumm [facility] Monocyte abs 1.4(H) 0.2 - 0.8 K/cumm [facility] Eosinophil abs 0.2 0.0 - 0.5 K/cumm [facility] Basophil abs 0.0 0.0 - 0.1 K/cumm [facility] Neutrophil pct 68.7 % [facility] Comment: Interpretive Data Percent cell count reference ranges are not reported, since discordance with absolute values may lead to misinterpretation of CBC data. Current Interpretive Data was last revised on 2017. Imm gran pct 0.5 % [facility] Comment: Interpretive Data Percent cell count reference ranges are not reported, since discordance with absolute values may lead to misinterpretation of CBC data. Current Interpretive Data was last revised on 2017. Lymphocyte pct 16.4 % [facility] Comment: Interpretive Data Percent cell count reference ranges are not reported, since discordance with absolute values may lead to misinterpretation of CBC data. Current Interpretive Data was last revised on 2017. Monocyte pct 12.2 % [facility] Comment: Interpretive Data Percent cell count reference ranges are not reported, since discordance with absolute values may lead to misinterpretation of CBC data. Current Interpretive Data was last revised on 2017. Eosinophil pct 1.8 % [facility] Comment: Interpretive Data Percent cell count reference ranges are not reported, since discordance with absolute values may lead to misinterpretation of CBC data. Current Interpretive Data was last revised on 2017. Basophil pct 0.4 % [facility] Comment: Interpretive Data Percent cell count reference ranges are not reported, since discordance with absolute values may lead to misinterpretation of CBC data. Current Interpretive Data was last revised on 2017. Blood 07/21/2024 8:31 AM ACLS NURSE 07/21/2024 8:41 AM ACLS NURSE us Mell Easton MD LAB BLOOD ORDERABLES F inal Result [facility] Department [place] [address] * (ABNORMAL) CBC with auto differential (07/21/2024 8:31 AM ACLS NURSE) WBC 11.3(H) 3.8 - 9.9 K/cumm Hgb 14.5 13.0 - 17.5 g/dL [facility] Hct 42.7 38.9 - 50.3 % [facility] Plt 272 150 - 400 K/cumm [facility] MPV 9.9 9.1 - 12.3 fL [facility] RBC 4.71 4.30 - 5.80 M/cumm [facility] MCV 90.7 81.3 - 96.4 fL [facility] MCH 30.8 27.1 - 33.3 pg [facility] MCHC 34.0 32.3 - 35.7 g/dL [facility] RDW CV 12.4 11.1 - 14.9 % [facility] RDW SD 41.8 35.7 - 48.1 fL [facility] NRBC abs 0.00 0.00 - 0.01 K/cumm [facility] Blood 07/21/2024 8:31 AM ACLS NURSE 07/21/2024 8:41 AM ACLS NURSE Mell Easton MD LAB BLOOD ORDERABLES F inal Result [facility] [place] [address] * Comprehensive metabolic panel (07/21/2024 8:31 AM ACLS NURSE) Sodium 140 135 - 145 mmol/L Potassium, pl 4.0 3.3 - 4.9 mmol/L [facility] Chloride 101 97 - 110 mmol/L [facility] CO2 28 22 - 32 mmol/L [facility] Anion gap 11 2 - 15 mmol/L [facility] BUN 12 6 - 25 mg/dL [facility] Creatinine 0.80 0.80 - 1.30 mg/dL [facility] Glucose 119 70 - 199 mg/dL [facility] Comment: Interpretive Data Fasting glucose >/= 126 [...] 2022. Calcium 9.1 8.5 - 10.3 mg/dL [facility] Bilirubin, total 0.6 0.1 - 1.2 mg/dL [facility] Protein, pl 6.8 6.5 - 8.5 g/dL [facility] Albumin 3.8 3.5 - 5.0 g/dL [facility] Alk phos 103 40 - 130 Units/L [facility] ALT 20 7 - 55 Units/L [facility] AST 17 10 - 50 Units/L [facility] Blood 07/21/2024 8:31 AM ACLS NURSE 07/21/2024 8:41 AM ACLS NURSE us Mell Easton MD LAB BLOOD ORDERABLES F inal Result [facility] [place] [address] from Last 3 Months Insurance Care Teams Scrubber Operator Relationship Specialty Start Date End Date Bennett Shaikh MD [address] [facility] [address] [place] [address] PCP - General Family Medicine 06/09/22
--- OUTSIDE RECORDS SUMMARY | 2024-08-29 03:43 | XMS_ITS | Clinical Summary ---
Author Organization [facility] Address [address] [place] [address] Care Team Providers Care Cold Reduction Roller Name Role Phone Bennett Shaikh MD Primary [...] months Assessment & Plan (09/05/2022 10:27 AM COMMUNITY INTEGRATION SPECIALIST): Paroxysmal AF and atrial flutter with very high arrhythmia burden (24%) by ambulatory monitoring. Associated with mild symptoms. Rates elevated during events. Discussed arrhythmia management at length with patient. We reviewed rate control, AAD therapy and catheter ablation. Pt strongly prefers ablation. I reviewed the catheter ablation procedure in detail, including procedural steps, risks/benefits, expected outcomes, recovery. He understands and wishes to proceed. [id number] = 2 (age, hypertension). --Atrial fibrillation ablation w/anesthesia --Continue apixaban 5 mg BID. Hold starting the evening prior to procedure --Continue metoprolol XL 25 mg daily --F/u on echocardiogram results ( previously ordered) Paroxysmal atrial flutter (CMS/HCC) 07/21/2022 Hypertension 06/09/2022 Resolved Problems Problem Noted Date Diagnosed Date Resolved Date Palpitations 06/09/2022 08/10/2023 Encounters Date Type Department Care Team Description 08/14/2024 10:15 AM COMMUNITY INTEGRATION SPECIALIST Office Visit [facility] Card[facility] [address] [place] [address] Britt Obando MD Paroxysmal atrial fibrillation (CMS/HCC) (HCC) (Primary Dx); Primary hypertension; Mixed hyperlipidemia 07/21/2024 7:44 AM COMMUNITY INTEGRATION SPECIALIST - 07/21/2024 11:54 AM COMMUNITY INTEGRATION SPECIALIST Emergency [facility] Emergency Department [address] [place] [address] Dennis Jennings MD Gastrointestinal hemorrhage, unspecified gastrointestinal [...] on file Legal Sex Male 1:49 AM COMMUNITY INTEGRATION SPECIALIST Gender Identity Male 09/01/2022 10:15 AM COMMUNITY INTEGRATION SPECIALIST Sexual Orientation Not on file Obstetrics History Last Filed Vital Signs Vital Sign Reading Time Taken Comments Blood Pressure 138/70 08/14/2024 10:14 AM COMMUNITY INTEGRATION SPECIALIST Pulse 73 08/14/2024 10:14 AM COMMUNITY INTEGRATION SPECIALIST Temperature 37.1 ??C (98.8 ??F) 07/21/2024 7:20 AM CS T Respiratory Rate 15 07/21/2024 10:3 0 AM COMMUNITY INTEGRATION SPECIALIST Oxygen Saturation 96% 08/14/2024 10: 14 AM COMMUNITY INTEGRATION SPECIALIST Inhaled Oxygen Concentration - - Weight 93.8 kg (206 lb 12.8 oz) 025 10:14 AM COMMUNITY INTEGRATION SPECIALIST Height 167.6 cm (5' 6 ) 08/14/2024 10:1 4 AM COMMUNITY INTEGRATION SPECIALIST Body Mass Index 33.38 08/14/2024 10:14 AM COMMUNITY INTEGRATION SPECIALIST Plan of Treatment Health Maintenance Due Date [...] 03/2020, 02/11/2017 Medical Devices Implanted Type Area [employer] Battalion Chief Device Identifier Shelf Expiration Date Model / Serial / Lot [employer] Vascade Mvp 6-12fr Venous Closure [id number] - [id number] - [id number] Implanted:Qty: 1 on 10/05/2022 by Loki Shaikh III, MD at [facility] [employer] 07/12/2024 800-612C-1 0U / [id number] 9C / [id number] [employer] Vascade Mvp 6-12fr Venous Closure [id number] - [id number] - [id number] Implanted:Qty: 1 on 10/05/2022 by Loki Shaikh III, MD at [facility] [employer] 07/12/2024 800-612C-1 0U / [id number] 9C / [id number] [employer] Vascade Mvp 6-12fr Venous Closure [id number] - [id number] - [id number] Implanted:Qty: 1 on 10/05/2022 by Loki Shaikh III, MD at [facility] [employer] 07/12/2024 800-612C-1 0U / [id number] 9C / [id number] [employer] Vascade Mvp 6-12fr Venous Closure [id number] - [id number] - [id number] Implanted:Qty: 1 on 05/31/2023 by Loki Shaikh III, MD at [facility] [employer] 02/21/2025 800-612C-1 0U / [id number] / [id number] [employer] Vascade Mvp 6-12fr Venous Closure [id number] - [id number] - [id number] Implanted:Qty: 1 on 05/31/2023 by Loki Shaikh III, MD at [facility] [employer] 02/21/2025 800-612C-1 0U / [id number] 6C / [id number] [employer] Vascade Mvp 6-12fr Venous Closure [id number] - [id number] - [id number] Implanted:Qty: 1 on 05/31/2023 by Loki Shaikh III, MD at [facility] [employer] 02/21/2025 800-612C-1 0U / [id number] 6C / [id number] Procedures Procedure Name Priority Date/Time Associated Diagnosis Comments POCT LIPID PANEL Routine 08/14/2024 1:43 PM COMMUNITY INTEGRATION SPECIALIST Mixed hyperlipidemia TYPE AND SCREEN STAT 07/21/2024 10:22 AM COMMUNITY INTEGRATION SPECIALIST APTT STAT 07/21/2024 10:22 AM COMMUNITY INTEGRATION SPECIALIST PROTIME-INR STAT 07/21/2024 10:[address] INTEGRATION [address]IST [address] ABDOMEN PELVIS W CONTRAST ED 07/21/2024 9:50 AM COMMUNITY INTEGRATION SPECIALIST URINALYSIS AND REFLEX TO MICROSCOPIC STAT 07/21/2024 9:09 AM COMMUNITY INTEGRATION SPECIALIST POCT CREATININE - DEVICE Routine 07/21/2024 8:38 AM COMMUNITY INTEGRATION SPECIALIST EGFR STAT 07/21/2024 8:31 AM COMMUNITY INTEGRATION SPECIALIST DIFFERENTIAL AUTO STAT 07/21/2024 8:3 1 AM COMMUNITY INTEGRATION SPECIALIST COMPREHENSIVE METABOLIC PANEL STAT 07/21/2024 8:31 AM COMMUNITY INTEGRATION SPECIALIST CBC WITH AUTO DIFFERENTIAL STAT 07/21/2024 8:31 AM COMMUNITY INTEGRATION SPECIALIST from Last 3 Months Results * POCT lipid panel (08/14/2024 1:43 PM COMMUNITY INTEGRATION SPECIALIST) Cholesterol, POC 163 mg/dL Comment:GLU = 119 HDL, POC 38 mg/dL Triglycerides, POC 77 mg/dL LDL Cholesterol POC 110 mg/dL Chol/HDL Ratio, POC 2.9 Non-HDL Cholesterol, POC 125 mg/dL Cholesterol Total, POC 163 mg/dL Capillary blood 08/14/2024 1 :43 PM COMMUNITY INTEGRATION SPECIALIST [facility] Beth Obando MD POINT OF CARE TEST ORDE JAMES Final Result * aPTT (07/21/2024 10:22 AM COMMUNITY INTEGRATION SPECIALIST) aPTT 38 28 - 38 sec Comment: Interpretive Data Heparin therapeutic range: 66.0 - 100.0 seconds. Range based on correlation with therapeutic heparin activity range of 0.3 - 0.7 Units/mL. Current interpretive data was last revised on 2023. Blood 07/21/2024 10:2 2 AM COMMUNITY INTEGRATION SPECIALIST 07/21/2024 10:29 AM COMMUNITY INTEGRATION SPECIALIST Mell Easton MD LAB BLOOD ORDERABLES F inal Result [facility] [employer] [place], [place] [id number] * (ABNORMAL) Protime-INR (07/21/2024 10:22 AM COMMUNITY INTEGRATION SPECIALIST) PT 17.6(H) 9.7 - 13.0 sec INR 1.61(H) 0.90 - 1.20 [facility] Comment: Interpretive data Oral anticoagulant therapeutic ranges: Venous thromboembolism prophylaxis or treatment: 2.0-3.0 CARDIOLOGY Standard range: 2.0-3.0 High-intensity range: 2.5-3.5 Refer to indication-specific guidelines for appropriate target ranges for prosthetic heart valve replacement. Current interpretive data was last revised on 2019. Blood 07/21/2024 10:2 2 AM COMMUNITY INTEGRATION SPECIALIST 07/21/2024 10:29 AM COMMUNITY INTEGRATION SPECIALIST Mell Easton MD LAB BLOOD ORDERABLES F inal Result [facility] [place] [address] * Type and screen (07/21/2024 10:22 AM COMMUNITY INTEGRATION SPECIALIST) Andrez, indirect Negative ABO Rh O Negative [facility] Blood 07/21/2024 10:2 2 AM COMMUNITY INTEGRATION SPECIALIST 07/21/2024 10:35 AM COMMUNITY INTEGRATION SPECIALIST Narrative MARÍA HERNANDEZ - 07/21/2024 11:29 AM COMMUNITY INTEGRATION SPECIALIST Has the patient had Daratumumab or Isatuximab in the past 6 months?->Unknown Mell Easton MD LAB BLOOD BANK TEST OR DERABLES Final Result [facility] Department [place] [address] * CT Abdomen Pelvis W Contrast (07/21/2024 9:50 AM COMMUNITY INTEGRATION SPECIALIST) Anatomical Region Laterality Modality Body N/A Computed Tomogra phy 07/21/2024 10:0 7 AM COMMUNITY INTEGRATION SPECIALIST Impressions 07/21/2024 10:07 AM COMMUNITY INTEGRATION SPECIALIST 1. ??CT findings demonstrating rectal inflammation. ??No discrete mass is identified. ??Direct visualization would be recommended to rule out rectal mass. 2. ??Complex left renal lesion with solid component is suspicious for neoplasm. ??MR would be recommended for further evaluation. 3. ??Bilateral indeterminate adrenal nodules. ??These could be also evaluated with MRI. Electronically signed by: Kyle Patel M.D. Narrative 07/21/2024 10:07 AM COMMUNITY INTEGRATION SPECIALIST EXAMINATION: CT ABDOMEN PELVIS W CONTRAST HISTORY: [...] Urinalysis reflex to microscopic (07/21/2024 9:09 AM COMMUNITY INTEGRATION SPECIALIST) Color, ur Yellow Yellow Clarity, ur Clear Clear [facility] Specific gravity, ur 1.017 1.003 - 1.030 [facility] pH, urine 7.0 [facility] Comment: Interpretive Data ? Urine pH is affected by diet, medications, systemic acid-base disturbances, and renal tubular function. ??pH may affect urinary stone formation. ??For example, urine pH below 6.0 may help reduce the tendency for calcium phosphate stones and pH greater than 6.0 may reduce the tendency for uric acid stone formation. Source: [facility] Current Interpretive Data was last revised on 2017 Protein, ur ql Trace Negative [facility] Glucose, ur ql Negative Negative [facility] Ketones, ur Negative Negative [facility] Bilirubin, ur Negative Negative [facility] Blood, ur Negative Negative [facility] Urobilinogen, ur <2.0 <2.0 mg/dL [facility] Nitrite, ur Negative Negative [facility] Leukocyte esterase, ur Negative Negative [facility] UA reflex comment Reflex conditions for microscopic UA not met. [facility] Urine 07/21/2024 9:09 AM COMMUNITY INTEGRATION SPECIALIST 07/21/2024 9:25 AM COMMUNITY INTEGRATION SPECIALIST us Mell Easton MD LAB URINE ORDERABLES F inal Result Performing Organization Address City/[facility]/ZIP Co de Phone Number [facility] [place] [address] * POCT creatinine (07/21/2024 8:38 AM COMMUNITY INTEGRATION SPECIALIST) Pathologist [facility] Creatinine POC 0.8 0.7 - 1.3 mg/dL Blood 07/21/2024 8:38 AM COMMUNITY INTEGRATION SPECIALIST 07/21/2024 8:38 AM COMMUNITY INTEGRATION SPECIALIST us Dennis Jennings MD LAB POCT ORDERABLES - MYAH CE Final Result Performing Organization Address [facility]/ZIP Co de Phone Number [facility] [place] [address] * eGFR (07/21/2024 8:31 AM COMMUNITY INTEGRATION SPECIALIST) Pathologist [facility] eGFR >90 >=60 mL/min/1. 73 m2 Comment: [...] last reviewed 2021. Blood 07/21/2024 8:31 AM COMMUNITY INTEGRATION SPECIALIST 07/21/2024 8:41 AM COMMUNITY INTEGRATION SPECIALIST us Mell Easton MD LAB BLOOD ORDERABLES F inal Result [facility] Department [place] [address] * (ABNORMAL) Differential, auto (07/21/2024 8:31 AM COMMUNITY INTEGRATION SPECIALIST) [facility] Neutrophil abs 7.8(H) 1.5 - 6.5 K/cumm Imm gran abs 0.1 0.0 - 0.1 K/cumm [facility] Lymphocyte abs 1.9 0.8 - 3.3 K/cumm [facility] Monocyte abs 1.4(H) 0.2 - 0.8 K/cumm [facility] Eosinophil abs 0.2 0.0 - 0.5 K/cumm [facility] Basophil abs 0.0 0.0 - 0.1 K/cumm [facility] Neutrophil pct 68.7 % [facility] Comment: Interpretive Data Percent cell count reference ranges are not reported, since discordance with absolute values may lead to misinterpretation of CBC data. Current Interpretive Data was last revised on 2017. Imm gran pct 0.5 % [facility] Comment: Interpretive Data Percent cell count reference ranges are not reported, since discordance with absolute values may lead to misinterpretation of CBC data. Current Interpretive Data was last revised on 2017. Lymphocyte pct 16.4 % [facility] Comment: Interpretive Data Percent cell count reference ranges are not reported, since discordance with absolute values may lead to misinterpretation of CBC data. Current Interpretive Data was last revised on 2017. Monocyte pct 12.2 % [facility] Comment: Interpretive Data Percent cell count reference ranges are not reported, since discordance with absolute values may lead to misinterpretation of CBC data. Current Interpretive Data was last revised on 2017. Eosinophil pct 1.8 % [facility] Comment: Interpretive Data Percent cell count reference ranges are not reported, since discordance with absolute values may lead to misinterpretation of CBC data. Current Interpretive Data was last revised on 2017. Basophil pct 0.4 % [facility] Comment: Interpretive Data Percent cell count reference ranges are not reported, since discordance with absolute values may lead to misinterpretation of CBC data. Current Interpretive Data was last revised on 2017. Blood 07/21/2024 8:31 AM COMMUNITY INTEGRATION SPECIALIST 07/21/2024 8:41 AM COMMUNITY INTEGRATION SPECIALIST us Mell Easton MD LAB BLOOD ORDERABLES F inal Result [facility] Department [place] [address] * (ABNORMAL) CBC with auto differential (07/21/2024 8:31 AM COMMUNITY INTEGRATION SPECIALIST) [facility] WBC 11.3(H) 3.8 - 9.9 K/cumm Hgb 14.5 13.0 - 17.5 g/dL [facility] Hct 42.7 38.9 - 50.3 % [facility] Plt 272 150 - 400 K/cumm [facility] MPV 9.9 9.1 - 12.3 fL [facility] RBC 4.71 4.30 - 5.80 M/cumm [facility] MCV 90.7 81.3 - 96.4 fL [facility] MCH 30.8 27.1 - 33.3 pg [facility] MCHC 34.0 32.3 - 35.7 g/dL [facility] RDW CV 12.4 11.1 - 14.9 % [facility] RDW SD 41.8 35.7 - 48.1 fL [facility] NRBC abs 0.00 0.00 - 0.01 K/cumm [facility] Blood 07/21/2024 8:31 AM COMMUNITY INTEGRATION SPECIALIST 07/21/2024 8:41 AM COMMUNITY INTEGRATION SPECIALIST us Mell Easton MD LAB BLOOD ORDERABLES F inal Result [facility] Department [place] [address] * Comprehensive metabolic panel (07/21/2024 8:31 AM COMMUNITY INTEGRATION SPECIALIST) [facility] Sodium 140 135 - 145 mmol/L Potassium, pl 4.0 3.3 - 4.9 mmol/L [facility] Chloride 101 97 - 110 mmol/L [facility] CO2 28 22 - 32 mmol/L [facility] Anion gap 11 2 - 15 mmol/L [facility] BUN 12 6 - 25 mg/dL [facility] Creatinine 0.80 0.80 - 1.30 mg/dL [facility] Glucose 119 70 - 199 mg/dL [facility] Comment: Interpretive Data Fasting glucose >/= 126 [...] Calcium 9.1 8.5 - 10.3 mg/dL [facility] Bilirubin, total 0.6 0.1 - 1.2 mg/dL [facility] Protein, pl 6.8 6.5 - 8.5 g/dL [facility] Albumin 3.8 3.5 - 5.0 g/dL [facility] Alk phos 103 40 - 130 Units/L [facility] ALT 20 7 - 55 Units/L [facility] AST 17 10 - 50 Units/L [facility] Blood 07/21/2024 8:31 AM COMMUNITY INTEGRATION SPECIALIST 07/21/2024 8:41 AM COMMUNITY INTEGRATION SPECIALIST us Mell Easton MD LAB BLOOD ORDERABLES F inal Result [facility] Department [place] [address] from Last 3 Months Insurance [facility] MEDICARE AET MEDICARE AET MEDICARE Care Teams Cold Reduction Roller Relationship Specialty Start Date End Date Bennett Shaikh MD [address] [facility] [address] [place] [address] PCP - General Family Medicine 06/09/22
== END 2024-08-28 14:48 | disposition home or self-care (01) ==
PROVIDERS: PCP Family Medicine; Visit Provider Surgery
PROC: (CPT 46275; principal; 2024-08-28 12:00)
DX: K60.321 Anal fistula, complex, initial (principal); G89.18 Other acute postprocedural pain; I10 Essential (primary) hypertension; I48.0 Paroxysmal atrial fibrillation; F41.9 Anxiety disorder, unspecified; Z79.01 Long term (current) use of anticoagulants; Z79.891 Long term (current) use of opiate analgesic; Z98.890 Other specified postprocedural states; Z98.1 Arthrodesis status; Z86.79 Personal history of other diseases of the circulatory system; Z82.49 Family history of ischemic heart disease and other diseases of the circulatory system
CPT/HCPCS: 46275; 36415; 80048; 85025; 93005; A9270; J0690; J1100; J1885; J2405; J2704; J3010; J7120

== ENCOUNTER 2024-11-17 10:44 | Outpatient (CLI) | payer MEDICARE, SELFPAY ==
--- NOTE | ~2024-11-17 | MR_ITS ---
MRI of the abdomen: Clinical indication: Renal mass. Technique: Coronal SSFSE ARC, WATER:coronal LAVA-FLEX, Coronal 2D FIESTA FatSat, Axial SSFSE BH ARC, Axial 3D DualEcho BH, Axial SSFSE-IR, Axial DWI b=500, Axial 2D FIESTA FatSat, pre and dynamic postco ntrast Axial LAVA ARC, postcontrast Coronal In and Opposed phase LAVA FLEX. Following intravenous adm inistration of 19 cc MultiHance gadolinium, T1-weighted fat-sat imaging was performed in the axial an d coronal planes. COMPARISON: 08/18/2024 Findings: Gallbladder unremarkable. The common bile duct is normal in course and caliber. No filling defects are seen within the CBD. No evidence of intrahepatic biliary ductal dilatation. The pancreati c duct is normal in size. There is diffuse signal loss in the liver on out of phase images images, compatible with diffuse fatt y infiltration. Spleen, and pancreas appear normal. Bilateral hemorrhagic/proteinaceous renal cysts a re present, unchanged. Bilateral adrenal adenomas are unchanged. The aorta and the paraaortic regions appear normal. Impression: Stable bilateral hemorrhagic/proteinaceous renal cysts. The left renal cystic lesion is mildly comple x. Consider follow-up exam in 6 months to one year. Diffuse fatty infiltration of liver. Stable bilateral adrenal adenomas. Reviewed, dictated and finalized at location . Impression: Stable bilateral hemorrhagic/proteinaceous renal cysts. The left renal cystic l esion is mildly complex. Consider follow-up exam in 6 months to one year. Diffuse fatty infiltration of liver. Stable bilateral adrenal adenomas.
== END 2024-11-17 10:45 | disposition home or self-care (01) ==
LOC: MICIMG 10:45
PROVIDERS: PCP Family Medicine; Visit Provider Urology
DX: N28.1 Cyst of kidney, acquired (principal); K76.0 Fatty (change of) liver, not elsewhere classified; D35.02 Benign neoplasm of left adrenal gland; D35.01 Benign neoplasm of right adrenal gland
CPT/HCPCS: 74183; A9577

== ENCOUNTER 2025-04-10 08:39 | Outpatient (CLI) | payer MEDICARE, SELFPAY ==
--- NOTE | ~2025-04-10 | XR_ITS ---
EXAMINATION: XR chest 2V 04/10/2025 09:33 INDICATION: Contact with asbestos PROCEDURE: 2 view chest COMPARISON: Comparison to multiple prior studies sequentially, with oldest reviewed study dated 03/01/2021. FINDINGS: The lungs are clear. The cardiomediastinal silhouette is within normal limits. There are no pleural effusions. There is no pneumothorax suspected. The lungs are hyperinflated which is consistent with, but not diagnostic of chronic obstructive pulmonary disease. There is a chronic lower thoracic wedge compression deformity. IMPRESSION: 1: NO ACUTE CARDIOPULMONARY DISEASE. Reviewed, dictated and finalized at location O.
== END 2025-04-10 08:40 | disposition home or self-care (01) ==
LOC: MICIMG 08:40
PROVIDERS: PCP Family Medicine; Visit Provider Family Medicine
DX: Z77.090 Contact with and (suspected) exposure to asbestos (principal)
CPT/HCPCS: 71046

== ENCOUNTER 2025-06-18 10:43 | Outpatient (CLI) | payer MEDICARE, SELFPAY ==
--- NOTE | ~2025-06-18 | MR_ITS ---
EXAM/PROCEDURE: MR abdomen wo/w con HISTORY: RENAL MASS COMPARISON: 11/17/2024 TECHNIQUE: Multiplanar pre and postcontrast enhanced abdominal MRI performed. FINDINGS: A 2.9 cm upper pole left renal complex cystic lesion is again noted unchanged in appearance, signal characteristics or enhancement pattern. Bilateral adrenal masses both are stable in size and appearance including decreased signal on out of phase dual echo sequences. The liver is also slightly decreased on out of phase images. All these findings are consistent with benign adenomatous or fatty changes. 1.3 cm lower pole right renal cyst. IMPRESSION: Stable appearance of a Bosniak 3 left upper pole renal cyst. Stable appearance of bilateral benign adrenal adenomas and fatty liver changes. Recommendation: The left upper pole renal lesion requires additional surveillance. Sources vary in terms of how long surveillance is required, however some sources suggest minimum of 4 years. Follow-up or repeat exam in 6- 12 months recommended. Reviewed, dictated and finalized at location A. PHARMACY TECH IMPRESSION: Stable appearance of a Bosniak 3 left upper pole renal cyst. Stable appearance of bilateral benign adrenal adenomas and fatty liver changes. Recommendation: The left upper pole renal lesion requires additional surveillan ce. Sources vary in terms of how long surveillance is required, however some so urces suggest minimum of 4 years. Follow-up or repeat exam in 6-12 months recom mended.
--- OUTSIDE RECORDS SUMMARY | 2025-06-18 11:42 | XMS_ITS | Patient Health Record ---
Author Organization [facility] [employer] [facility] Address [address] [place] [address] [address] [place] [address] Care Team Providers Care Quartz Miner [employer]asting Name Role Phone Wali- Gil SANTANA MD- DO NOT SEND Unavaila ble Unavailable Reason For Referral No Information Plan Of Treatment No Information Insurance Providers Payer Name Payer Address Payer Phone Subscriber Number Group Number Insured Name Patient Relationship to Insured Coverage Start Date Coverage End Date [facility] [address] [place] [address] [phone] [id number] Kyle Hilario Self - patient is the insured 7
--- OUTSIDE RECORDS SUMMARY | 2025-06-18 11:42 | XMS_ITS | Clinical Summary ---
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 Name Role Phone Bennett Shaikh MD Primary Care Provider Catarino Guajardo MD Unavailable [phone] Allergies No known active allergies Medications fluticasone propionate (FLONASE) 50 mcg/actuation nasal sprayIndicatio ns:Allergic Rhinitis Administer 1 spray into each nostril daily as needed for rhinitis or allergies Act klaus potassium gluconate 595 mg (99 mg) tabletIndicati ons:hypokalemi a prevention,sup plement Take 1 tablet (595 mg total) by mouth every evening Active cetirizine (ZyrTEC) 10 mg chewable tabletIndicati ons:Seasonal Allergic Rhinitis Take 1 tablet (10 mg total) by mouth every evening Active ascorbic acid (VITAMIN C) 1,000 mg tabletIndicati ons:supplement Take 1 tablet (1,000 mg total) by mouth every evening Active magnesium oxide 400 mg magnesium capsuleIndicat ions:supplemen t Take 1 tablet by mouth every evening Activ e vitamin B complex capsuleIndicat ions:Vitamin Deficiency Prevention Take 1 capsule by mouth every other day Every other day in the evening, odd days Act klaus calcium citrate-vitami n D3 (CITRACAL WITH D) 315 mg-6.25 mcg (250 unit) per tabletIndicati ons:Hypocalcem ia Prevention,Pre vention of Vitamin D Deficiency Take 1 tablet by mouth every evening Activ e glucosamine HCl/chondroiti n rosas (glucosamine-c hondroitin) 2,000-1,200 mg/30 mL liquidIndicati ons:supplement Take 1 Dose by mouth every evening Active losartan (COZAAR) 100 mg tabletIndicati ons:hypertensi on Take 1 tablet (100 mg total) by mouth every morning Active hydroCHLOROthi azide (HYDRODIURIL) 12.5 mg tabletIndicati ons:hypertensi on Take 1 tablet (12.5 mg total) by mouth every morning Active lidocaine (LMX) 4 % cream Apply topically as needed for pain 30 g 07/21/20 24 Active Additional Information Patient taking differently: 1 Applicationtopical As needed, pain,Has not used in over a month, Indications: skin irritation, Informant: Self, Reported on 03/06/2025 polyethylene glycol (MIRALAX) 17 gram/dose bulk powder Take 17 g by mouth daily 510 g 07/21/20 24 Active Additional Information Patient taking differently:17 g oralDaily PRN, Indications: constipation, Informant: Self, Reported on 02/16/2025 metoprolol XL (TOPROL-XL) 25 mg extended release tablet TAKE 1 TABLET(25 MG) BY MOUTH DAILY 90 tablet 3 12/20/19 25 Active Additional Information Patient taking differently:25 mg oralEvery morning, Indications: hypertension, Informant: Self, Reported on 03/06/2025 apixaban (Eliquis) 5 mg tablet TAKE 1 TABLET(5 MG) BY MOUTH TWICE DAILY 180 tablet 3 12/20/19 25 Active Additional Information Patient taking differently:5 mg oral 2 times daily,Indications: VTE Prophylaxis, Informant: Self, Reported on 03/06/2025 metroNIDAZOLE (METROGEL) 1 % gelIndications :Acne Rosacea Apply 1 Application topically 2 (two) times a day APPLY TO RED AREAS ON FACE TWICE DAILY 10/29/19 25 Active vitamins A,C,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 Associated with mild symptoms. Rates elevated during events. Discussed arrhythmia management at length with patient. We reviewed rate control, AAD therapy and catheter ablation. Pt strongly prefers ablation. I reviewed the catheter ablation procedure in detail, including procedural steps, risks/benefits, expected outcomes, recovery. He understands and wishes to proceed. [id number] = 2 (age, hypertension). --Atrial fibrillation ablation w/anesthesia --Continue apixaban 5 mg BID. Hold starting the evening prior to procedure --Continue metoprolol XL 25 mg daily --F/u on echocardiogram results ( previously ordered) Paroxysmal atrial flutter 07/21/2022 Hypertension 06/09/2022 Resolved Problems Problem Noted Date Diagnosed Date Resolved Date Palpitations 06/09/2022 08/10/2023 Encounters Date Type Department Care Team Description 04/03/2025 Telephone [facility] Accountable Care Organization [address] [place] [id number] Teressa Hdz Unsuccessful Phone Call 1 (Med adherence) from Last 3 Months Immunizations Immunization Administration Dates Next Due Influenza, Quad, Adjuvantated, Intramuscular 01/2021 Influenza, Quadrivalent, Chica l Culture-based MDCK, Preservative Free, Antibiotic Free, Intramuscular 04/02/2017 Influenza, Quadrivalent, Hig h Dose, Preservative Free, Intrr 03/24/2020 Influenza, Quadrivalent, Spl it, Preservative Free, Intramuscular 05/06/2019,04/30/2018 Influenza, Trivalent, IM (MDV) 08/05/2012 Influenza, Trivalent, Preservative Free, Intramu scular 07/16/2016,07/21/2015 Pneumococcal Polysaccharide PPV23 03/24/2020 Tdap 04/22/2020,02/27/2017 ZOSTER LIVE 02/11/2017 ZOSTER Recombinant 07/14/2020,05/13/2020 Surgical History Surgery Date Site/Laterality Comments CARPAL TUNNEL RELEASE 08/06/1994 - 08/05/1995 Bilateral HERNIA REPAIR 08/06/1994 - 08/05/1995 SPINE SURGERY 08/06/1998 - 08/05/1999 L4-L5 TREATMENT FISTULA ANAL 08/28/2024 CARDIAC ELECTROPHYSIOLOGY MAPPING AND ABLATION 05/31/2023 and 10/05/2022 for AFib ANAL EXAMINATION UNDER ANESTHESIA 03/06/2025 Exam under anesthesia curettage and fulguration of nonhealing wound WOUND DEBRIDEMENT 03/06/2025 Exam under anesthesia curettage and fulguration of nonhealing wound Medical History Medical History Date Comments Atrial fibrillation (HCC) Hypertension Anxiety Anal fistula Colorectal polyps Family History Medical History Relation Name Comments Atrial fibrillation Mother Lidya Hilario Hypertension Mother Lidya Hilario Anesthesia problems Neg Hx Malig Hypertension Neg Hx Malig Hyperthermia Neg Hx Pseudochol deficiency Neg Hx Relation Name Status Comments Mother Lidya Hilario Social History Tobacco Use Types Packs/Day Years Used Date Smoking Tobacco: Never Smokeless Tobacco: Never Tobacco Cessation:Counseling Given: Not Answered AUDIT-C Answer Date Recorded Q1: How often do you have a drink containing alcohol? 4 or more times a week 02/16/2025 Q2: How many drinks containi ng alcohol do you have on a typical day when you are drinking? 3 or 4 Q3: How often do you have si x or more drinks on one occasion? Never 02/16/2025 Personal Safety Answer Date Recorded Have you ever been in or are you currently in a harmful physical or emotional relationship or is someone making you feel afraid or unsafe? Denies 03/06/2025 Sex and Gender Information Value Date Recorded Sex Assigned at Not on file Legal Sex Male 1:49 AM KIER HAND Gender Identity Male 09/01/2022 10:15 AM KIER HAND Sexual Orientation Not on file Last Filed Vital Signs Vital Sign Reading Time Taken Comments Blood Pressure 137/71 03/06/2025 8:50 AM CDT Pulse 61 03/06/2025 8:50 AM CDT Temperature 36 C (96.8 F) 03/06/2025 8:39 AM CDT Respiratory Rate 20 03/06/2025 8:50 AM CDT Oxygen Saturation 94% 03/06/2025 8:50 AM CDT Inhaled Oxygen Concentration - - Weight 95.3 kg (210 lb) 03/06/2025 7:19 AM CDT Height 167.6 cm (5' 6) 03/06/2025 7:19 AM CDT Body Mass Index 33.89 03/06/2025 7:19 AM CDT Plan of Treatment Health Maintenance Due Date Last Done Comments Colon Cancer Screening-Colonoscopy 1955 Depression Screening 1955 Hepatitis C Screening 1955 Hepatitis B Screening 1973 Well Visit 65+ 01/13/2020 Pneumococcal vaccine 65+ (2 of 2 - PCV) 03/24/2021 03/24/2020 Covid-19 Vaccine ( - 2024-2 6 season) 2025 04/13/2022, 11/03/2021, 05/06/2021, Additional history exists Influenza Vaccine (#1) 2025 , 03/24/2020, 05/06/2019, Additional history exists Fall Risk Assessment 03/06/2026 03/06/2025 DTaP/Tdap/Td Vaccine (3 - Td or Tdap) 04/22/2030 04/22/2020, 02/27/2017 Zoster Vaccine Completed 07/14/2020, 03/2020, 02/11/2017 Medical Devices Implanted Type Area Type Copyist Device Identifier Shelf Expiration Date Model / Serial / Lot [employer] Vascade Mvp 6-12fr Venous Closure [id number] - [id number] - [id number] Implanted:Qty: 1 on 10/05/2022 by Loki Shaikh III, MD at [facility] [employer] 07/12/2024 800-612C-1 0U / [id number] / [id number] [employer] Vascade Mvp 6-12fr Venous Closure [id number] - [id number] - [id number] Implanted:Qty: 1 on 10/05/2022 by Loki Shaikh III, MD at [facility] [employer] 07/12/2024 800-612C-1 0U / [id number] / [id number] [employer] Vascade Mvp 6-12fr Venous Closure [id number] - [id number] - [id number] Implanted:Qty: 1 on 10/05/2022 by Loki Shaikh III, MD at [facility] [employer] 07/12/2024 800-612C-1 0U / [id number] / [id number] [employer] Vascade Mvp 6-12fr Venous Closure [id number] - [id number] - [id number] Implanted:Qty: 1 on 05/31/2023 by Loki Shaikh III, MD at [facility] [employer] 02/21/2025 800-612C-1 0U / [id number] / [id number] [employer] Vascade Mvp 6-12fr Venous Closure [id number] - [id number] - [id number] Implanted:Qty: 1 on 05/31/2023 by Loki Shaikh III, MD at [facility] [employer] 02/21/2025 800-612C-1 0U / [id number] / [id number] [employer] Vascade Mvp 6-12fr Venous Closure [id number] - [id number] - [id number] Implanted:Qty: 1 on 05/31/2023 by Loki Shaikh III, MD at [facility] [employer] 02/21/2025 800-612C-1 0U / [id number] / [id number] Insurance Care Teams 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
== END 2025-06-18 10:44 | disposition home or self-care (01) ==
LOC: ANHIMG 10:45
PROVIDERS: PCP Student in an Organized Health Care Education/Training Program; Visit Provider Urology
DX: N28.1 Cyst of kidney, acquired (principal); D35.02 Benign neoplasm of left adrenal gland; D35.01 Benign neoplasm of right adrenal gland; K76.89 Other specified diseases of liver; N28.89 Other specified disorders of kidney and ureter
CPT/HCPCS: 74183; A9577